=== PATIENT | female | born 1965 | race Hispanic/Latino ===

== ENCOUNTER 2023-05-22 16:30 | Emergency (ER) | payer OTHER ==
--- OUTSIDE RECORDS SUMMARY | 2023-05-22 16:36 | XMS REPORT | Continuity of Care Document ---
:1965 Author Organization [facility] t Address [address] [place] [address] [place] [id number] Care Team Providers Name Role Phone Pcp, Patient Does Not Have A Primary Care Physician [phone] SHADI BAILEY Attending Clinician Unavailable [email or web address] Attending Clinician Unavailable Cecil Vitale Attending Clinician Dianne Norris Attending Clinician Kaity Tucker Attending Clinician Unavailable DILAN RUVALCABA Attending Clinician Unavailable Tobin Dilan Attending Clinician KATHY FORD Attending Clinician Unavailable Kathy Ford DO Attending Clinician Doctor Unassigned, Steely [place] Attending Clinician Unavailable Andreas Kent DO Attending Clinician SABAS PEREZ Attending Clinician Unavailable Sabas Perez MD Attending Clinician Jacqueline HAY, Isabel Baez Attending Clinician Unavailable Héctor Pugh Attending Clinician Andreas Linares MD Attending Clinician [phone] Moses Turner MD Attending Clinician CARLOZ GOMEZ Attending Clinician Unavailable PETER SANZ Attending Clinician Unavailable [email or web address] Admitting Clinician Unavailable DILAN RUVALCABA Admitting Clinician Unavailable Dilan Ruvalcaba Admitting Clinician KATHY FORD Admitting Clinician Unavailable Andreas Linares MD Admitting Clinician [phone] Payers Payer Name Policy Type Policy Number Effective Date Expiration Date S luis [facility] CHOICE/CHOICE [id number] 2021 PLUS 00:00:00 [employer] GENERIC [id number] 2018 00:00:00 [facility] [id number] 2021 PPO 00:00:00 Problems Condition Condition Condition Status Onset Resolution Last Treating Co mments Source Name Details Category Date Date Treatment Clinician Date UNK UNK Diagnosis Active 2021-08-25 Mem oria Active 08-24 11:36:00 l 08/24/2021 00:00: Calvin gandhi [place] [id number] [place] LAPAROSCOP LAPAROSCO Diagnosis Active 2021-08-29 Memoria IC PIC 08-24 16:37:00 l CHOLECYSTE CHOLECYSTE 00:00: [place] CTOMY CTOMY 00 Active 08/24/2021 [facility] [place] [facility] Fluid Fluid Disease Active Univers collection collection 7-05 it y of at at 00:00: [place] surgical surgical 00 Medica l site site Branch Menorrhagi Menorrhagi Disease Active Overview : Univers a with a with 8-31 Added ity of regular regular 00:00: automatic [place] cycle cycle 00 ally from Medical request Branch for surgery [id number] Menorrhagi Menorrhagi Disease Active Overview : Univers a with a with 8-31 Formattin ity of regular regular 00:00: g of this [place] cycle cycle 00 note Medical might be Branch different from the original. Added automatic ally from request for surgery [id number] Anemia Anemia Disease Active Univers 8-14 ity of 00:00: [place] 00 Medical Branch Vaginal Vaginal Disease Active Univers bleeding bleeding 8-14 ity of 00:00: [place] 00 Medical Branch Iron Iron Disease Active Univers deficiency deficiency 8-14 it y of anemia due [place] to chronic to chronic 00 Me dical blood loss blood loss Br anch Anemia, Anemia, Disease Active Univers unspecifie unspecifie 01-24 it y of d type d type 00:00: [place] 00 Medical Branch Body mass Body mass Problem Resolve 2022-01-22 Memoria index 30+ index 30+ d 22:22:00 l - obesity - obesity [place] (finding) (finding) Resolved Problem 01/22/2022 BMI=35 Medical Group, DaM H [facility]IE [facility] Smoker Smoker Problem Active 2021-10-21 Skip almita (finding) (finding) 22:44:14 l Active [place] Problem 10/21/2021 Medical Group, DaRadha H [facility] [place] Fatigue Fatigue Problem Active 2022-01-22 M emoria (finding) (finding) 22:22:00 l Active [place] Problem 01/22/2022 [facility] History of History Problem Active 2022-01-22 Memoria total of total 22:22:00 l hysterecto hysterecto [place] my my (situation (situation ) ) Active Problem 01/22/2022 Medical Group Immunizati Immunizat Problem Active 2022-01-22 Memoria on due ion due 22:22:00 l (finding) (finding) [place] Active Problem 01/22/2022 Medical Group Menopausal Menopausa Problem Active 2022-01-22 Memoria and l and 22:22:00 l postmenopa postmenopa [place] [facility] usal usal disorders disorders (disorder) (disorder) Active Problem 01/22/2022 Medical Group Patient Patient Problem Active 2022-01-22 Me moria encounter encounter 22:22:00 l status status Moustapha (finding) (finding) Active Problem 01/22/2022 Medical Group Systolic Systolic Problem Active 2022-01-22 Memoria murmur murmur 22:22:00 l (finding) (finding) [place] Active Problem 01/22/2022 Medical Group R10.11 - R10.11 - Diagnosis Active 2021-08-24 Memoria RIGHT RIGHT 16:36:00 l UPPER UPPER [place] QUADRANT QUADRANT PAIN K80.2 PAIN K80.2 Active ROMIE Roberson History of Past Illness Condition Condition Condition Status Onset Resolution Last Treating Co mments Source Name Details Category Date Date Treatment Clinician Date Cardiac Cardiac Problem 2021-11-20 2021-11-20 Memoria murmur, murmur, 11-17 02:24:19 02:24:19 l unspecifie unspecifie 20:11: [place] d d 00 11/17/2021 11/20/2021 Medical Group Other Other Problem 2021-11-20 2021-11-20 M emoria fatigue fatigue 11-17 02:24:19 02:24:19 l 11/17/2021 20:11: Calvin n 11/20/2021 00 Medical Group Encounter Encounter Problem 2021-11-20 2021-11-20 Memoria for for 11-17 02:24:19 02:24:19 l screening screening 20:10: [place] for for 00 malignant malignant neoplasm neoplasm of colon of colon 11/17/2021 11/20/2021 Medical Group Encounter Encounter Problem 2021-11-20 2021-11-20 Memoria for for 11-17 02:24:19 02:24:19 l immunizati immunizati 20:10: [place] on on 00 11/17/2021 11/20/2021 Medical Group Other 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 11-17 02:24:19 02:24:19 l (current) (current) 20:10: [place] drug drug 00 therapy therapy 11/17/2021 11/20/2021 Medical Group Acquired Acquired Problem 2021-11-20 2021-11-20 Memoria absence of absence of - 02:24:19 02:24:19 l both both 20:10: [place] cervix and cervix and 00 uterus uterus 11/17/2021 11/20/2021 Medical Group Encounter Encounter Problem 2021-11-20 2021-11-20 Memoria for for - 02:24:19 02:24:19 l general general 20:09: Moustapha adult adult 00 medical medical examinatio examinatio n without n without abnormal abnormal findings findings 11/17/2021 11/20/2021 Medical Group Unspecifie Unspecifi Problem 2021-11-20 2021-11-20 Memoria d ed 11-17 02:24:19 02:24:19 l menopausal menopausal 20:09: [place] and and 00 perimenopa perimenopa usal usal disorder disorder 11/17/2021 11/20/2021 Medical Group Cholecysti Cholecyst Problem 2021-08-29 2021-08-29 Memoria tis, itis, 3 22:41:10 22:41:10 l unspecifie unspecifie 18:36: [place] d d 00 08/26/2021 08/29/2021 [facility] Allergies, Adverse Reactions, Alerts Allergy Allergy Status Severity Reaction(s) Onset Inactive Treating Comm ents Source Name Type Date Date Clinician NO KNOWN Drug Active Univers ALLERGIE Class ity of S [facility] No Known No Known Active Memori a Medicati Medicati l on on Moustapha Allergie Allergie s s Social History Social Habit Start Date Stop Date Quantity Comments Source [facility] 2021-08-24 2021-08-24 [facility] ermann 20:14:39 20:14:39 Exposure to 2021-07-03 2021-08-02 Not sure [facility] SARS-CoV-2 (event) 00:00:00 09:15:00 [facility] Alcohol intake 2020-01-27 2020-01-27 .29 /d University of 00:00:00 00:00:00 [facility] Tobacco use and 2020-01-26 2020-01-26 Smokeless Universit y of exposure 00:00:00 00:00:00 tobacco non-user [facility] Cigarettes smoked 2020-01-26 2020-01-26 Univers ity of current (pack per 00:00:00 00:00:00 ) - Reported Branch History of Social 2019-12-29 2019-12-29 Univers ity of function 00:00:00 00:00:00 [facility] History of tobacco 1980-12-14 2017-02-06 Cigarette Smoker University of use 00:00:00 00:00:00 [facility] Tobacco Comment 2017-02-05 2017-02-05 pt aware of Universi ty of 00:00:00 00:00:00 smoking haRMS [facility] Sex Assigned At [birth year] Universit y of 00:00:00 00:00:00 [facility] Smoking Status Start Date Stop Date Source Occasional tobacco smoker 2020-01-26 00:00:00 Un iversity of [facility] Medications Ordered Filled Start Stop Current Ordering Indication Dosage Frequency Signature Comments Components Source Medication Medication Date Date Medication? Clinician (SIG) Name Name estradiol 2 Yes 2 mg = 1 Me moria mg oral 5-26 tab, PO, l tablet 20:08: Daily, # [place] 00 30 tab, 0 Refill(s), Pharmacy: [id number], 168.91, cm, 11/17/21 14:41:00 CDT, Height, 98.324, kg, 11/17/21 14:41:00 CDT, Weight Docusate No Notes: Memoria 3-05 (Same as: l 15:00: Colace) Moustapha 00 (Do Not Crush) D10W No 125 mL, Memoria (bolus) IV 3-05 999 ml/hr, l 01:56: Route: [place] 00 IVPB, Drug Form: INJ, Dosing Weight 100, kg, PRN, PRN Blood Glucose Results, Start date: 08/26/21 19:56:00 DESULFURIZER HAND, Duration: 30 day, Stop date: 09/25/21 20:55:00 CDT, Infuse over: 0.1 hr, 0 tramadol No Notes: Not Mem oria hydrochlori 3-05 to exceed l de 50 MG 00:22: 400mg/day. [place] Oral Tablet 00 (Same As: Ultram) Acetaminoph No Notes: Do M emoria en 325 MG / 3-05 not exceed l Hydrocodone 00:22: 4gm/day of [place] Bitartrate 00 acetaminop 10 MG Oral hen. (Same Tablet as: [place]aus[place] [[place]aus[place] 325/10) 10/325] Dextrose No 25 mL, Memoria 50% Syringe 3-05 Route: l (D50W) 00:21: IVP, Moustap[place] 00 Dosing Weight 100, kg, PRN, PRN Blood Glucose Results, Start date: 08/26/21 18:21:00 DESULFURIZER HAND, Duration: 30 day, Stop date: 09/25/21 19:20:00 CDT Glucagon No 1 mg, Memoria 3-05 Route: IM, l 00:21: Drug form: Moustapha 00 PDR/INJ, PRN, Dosing Weight 100, kg, PRN Blood Glucose Results, Start date: 08/26/21 18:21:00 DESULFURIZER HAND, Duration: 30 day, Stop date: 09/25/21 19:20:00 CDT, 0 Ondansetron No Notes: Skip almita 3-05 (Same as: l 00:21: Zofran) Moustapha MEDICATION WASTE Product Size: 4 mg Product Wasted: ___ mg Acetaminoph No Notes: Do M emoria en 3-05 not exceed l 00:21: 4 gm/day. [place] 00 (Same as: Tylenol) gabapentin No Notes: Memor ia 300 MG Oral 3-04 (Same as: l Capsule 22:00: Neurontin) [place] Hydralazine No Notes: Skip almita 3-04 (Same as: l 21:12: Apresoline Moustapha ) Push over 5 minutes Labetalol No Notes: Memori a 3-04 (Same as: l 21:12: Normodyne, [place] Trandate) Push over 2 minutes Give bolus over 2-3 minutes. Oxycodone No Notes: Memori a Hydrochlori 3-04 (Same as: l de 5 MG 21:12: Roxicodone [place] Oral Tablet ) Fentanyl No Notes: Memoria 3-04 (Same as: l 21:12: Sublimaze) M[place] Preservati ve free. Hydromorpho No Notes: Skip almita ne 3-04 Same as: l 21:12: Dilaudid [place] Flumazenil No Notes: Memor ia 3-04 (Same as: l 21:12: Romazicon) M[place]ha Naloxone No Notes: Memoria 3-04 Same as l 21:12: Narcan [place] 00 Albuterol No Notes: SEE Me moria 0.83 MG/ML 3-04 RT l Inhalant 21:12: DOCUMENTAT [place] Solution 00 ION (Same as: Proventil) Diphenhydra No Notes: Skip almita mine 3-04 (Same as: l 21:12: Benadryl) Ondansetron No Notes: Skip almita 3-04 (Same as: l 21:12: Zofran) MEDICATION WASTE Product Size: 4 mg Product Wasted: ___ mg Dexamethaso No Notes: Memoria ne 3-04 MEDICATION l 21:12: WASTE Product Size: 10 mg Product Wasted: ___ mg gabapentin Yes 300 mg = 1 M emoria 300 MG Oral 3-04 cap, PO, l Capsule 21:05: Q8H, # 42 Lizbet nn 00 cap, 0 Refill(s), Pharmacy: [facility] [id number], 167.64, cm, 08/24/21 14:12:00 DESULFURIZER HAND, Height, 100, kg, 08/25/21 11:49:00 DESULFURIZER HAND, Weight Methocarbam Yes 1,000 mg = Memoria ol 500 MG 3-04 2 tab, PO, l Oral Tablet 21:05: QID, X 7 He [place] [Robaxin] 00 day, # 56 tab, 0 Refill(s), Pharmacy: [facility] [id number], 167.64, cm, 08/24/21 14:12:00 DESULFURIZER HAND, Height, 100, kg, 08/25/21 11:49:00 DESULFURIZER HAND, Weight glycopyrrol No Route: IV, Memoria ate (ANES) 08-26 Drug form: l 20:59: INJ, ONCE, Stop date: 08/26/21 14:59:00 DESULFURIZER HAND neostigmine No Route: IV, Memoria (ANES) 3- Drug form: l 20:59: INJ, ONCE, Stop date: 08/26/21 14:59:00 DESULFURIZER HAND esmolol No Route: IV, Skip almita (ANES) 08-26 Drug form: l 19:42: INJ, ONCE, Stop date: 08/26/21 13:42:00 DESULFURIZER HAND ondansetron No Route: IV, Memoria (ANES) 3- Drug form: l 19:06: INJ, ONCE, Stop date: 08/26/21 13:06:00 DESULFURIZER HAND dexamethaso No Route: IV, Memoria ne (ANES) 08-26 Drug form: l 19:06: INJ, ONCE, Stop date: 08/26/21 13:06:00 DESULFURIZER HAND ePHEDrine No Route: IV, Me moria (ANES) 08-26 Drug form: l 19:06: INJ, ONCE, Stop date: 08/26/21 13:06:00 DESULFURIZER HAND phenylephri No Route: IV, Memoria ne (ANES) 08-26 Drug form: l 19:06: INJ, ONCE, Stop date: 08/26/21 13:06:00 DESULFURIZER HAND lidocaine 2021-0 No Route: IV, Me moria (ANES) 3 Drug form: l 19:01: INJ, ONCE, Stop date: 08/26/21 13:01:00 DESULFURIZER HAND fentaNYL 2021-0 No Route: IV, Mem oria (ANES) 08-26 Drug form: l 19:01: INJ, ONCE, Stop date: 08/26/21 13:01:00 DESULFURIZER HAND propofol 2021-0 No Route: IV, Mem oria (ANES) 08-26 Drug form: l 19:01: INJ, ONCE, Stop date: 08/26/21 13:01:00 DESULFURIZER HAND rocuronium 0 No Route: IV, M emoria (ANES) - Drug form: l 19:01: INJ, ONCE, Stop date: 08/26/21 13:01:00 DESULFURIZER HAND ceFAZolin 2021-0 No Route: IV, Me moria (ANES) 3- Drug form: l 19:01: INJ, ONCE, Stop date: 08/26/21 13:01:00 DESULFURIZER HAND midazolam 2021-0 No Route: IV, Me moria (ANES) 3-04 Drug form: l 18:56: SOLN, [place] 00 ONCE, Stop date: 08/26/21 12:56:00 DESULFURIZER HAND Lactated No Route: IV, Mem oria Ringers 08-26 Total l Injection 18:05: Volume: Lizbet nn IV (ANES) 00 1,000, 1000 mL Start date: 08/26/21 12:05:00 DESULFURIZER HAND, Stop date: 08/26/21 13:05:00 DESULFURIZER HAND Calcium No 1,000 mL, Memor ia Chloride 08-26 Rate: 75 l 0.0014 17:33: ml/hr, Moustapha MEQ/ML / 00 Infuse Potassium over: 13.3 Chloride hr, Route: 0.004 IV, Dosing MEQ/ML / Weight 100 Sodium kg, Total Chloride Volume: 0.103 1,000, MEQ/ML / Start Sodium date: Lactate 08/26/21 0.028 11:33:00 MEQ/ML DESULFURIZER HAND, Injectable Duration: Solution 30 day, Stop date: 09/25/21 11:32:00 CDT, BSA: 2.19 m2, 0 estradiol 2 Yes 2 mg = 1 Me moria mg oral 2-25 tab, PO, l tablet 22:32: Daily, # [place] 00 90 tab, 0 Refill(s), Pharmacy: [facility] [id number], 168.91, cm, 08/19/21 16:04:00 DESULFURIZER HAND, Height, 99.148, kg, 08/19/21 16:04:00 DESULFURIZER HAND, Weight estradiol 2 No 2 mg = 1 Me moria mg oral 2-25 tab, PO, l tablet 22:02: Daily, 0 [place] 00 Refill(s) traMADoL 2021- No 50mg 50 mg, Univer s (ULTRAM) 08-02-08 Oral, ity of tablet 50 21:15: 19:50 ONCE, 1 [place] mg 00 :00 dose, On Sun08/02/21 Branch at 1515, Routine iopamidol 2021- No [id number] 100mL 100 mL, Univers (ISOVUE 08-02- Intravenou ity o f 300-500 mL) 18:45: 17:27 s, ONCE, 1 [place] injection 00 :00 dose, On Medica l 100 mL 08/02/21 Branch at 1245, Routine proMETHazin 0 Yes [id number] 25mg Take 1 Univers e 25 mg 2-08 tablet by ity of tablet 00:00: mouth [place] 00 every 6 Medical (six) Branch hours as needed for Nausea and Vomiting (N/V). traMADoL 50 2021-0 2021- No [id number] 50mg Take 1 Uni vers mg tablet 2-08 02-16 tablet by ity of 00:00: 05:59 mouth [place] 00 :00 every 6 Medical (six) Branch hours as needed for Pain (scale 7-10) for up to 7 days. Indication s: acute pain Non-Adheren 0 Yes [id number] Use as Univers t Bandage 7-06 directed ity of (CURITY 00:00: [place] ABDOMINAL 00 Medical PAD) 5 X 9 Branch " Bndg Gauze 2020-0 Yes [id number] Use as Unive rs Bandage 7-06 directed ity of (KERLIX) 4 00:00: [place] 1/2 X 147 " 00 Medical Bndg Branch Povidone-Io 2020-0 Yes [id number] Apply to Univers dine 10 % 7-06 area(s) ity of swab stick 00:00: daily. 00 Medical Branch Non-Adheren 2019-0 Yes [id number] Use as Univers t Bandage 7-06 directed ity of (CURITY 00:00: [place] ABDOMINAL 00 Medical PAD) 5 X 9 Branch " Bndg Gauze 2020-0 Yes [id number] Use as Unive rs Bandage 7-06 directed ity of (KERLIX) 4 00:00: [place] 1/2 X 147 " 00 Medical Bndg Branch Povidone-Io 2020-0 Yes [id number] Apply to Univers dine 10 % 7-06 area(s) ity of swab stick 00:00: daily. [place] 00 Medical Branch Non-Adheren 2019-0 Yes [id number] Use as Univers t Bandage 7-06 directed ity of (CURITY 00:00: [place] ABDOMINAL 00 Medical PAD) 5 X 9 Branch " Bndg Gauze 2020-0 Yes [id number] Use as Unive rs Bandage 7-06 directed ity of (KERLIX) 4 00:00: [place] 1/2 X 147 " 00 Medical Bndg Branch Povidone-Io 2020-0 Yes [id number] Apply to Univers dine 10 % 7-06 area(s) ity of swab stick 00:00: daily. 00 Medical Branch Non-Adheren 2020-0 Yes [id number] Use as Univers t Bandage 7-06 directed ity of (CURITY 00:00: [place] ABDOMINAL 00 Medical PAD) 5 X 9 Branch " Bndg Gauze 2020-0 Yes [id number] Use as Unive rs Bandage 7-06 directed ity of (KERLIX) 4 00:00: [place] 1/2 X 147 " 00 Medical Bndg Branch Povidone-Io 2020-0 Yes [id number] Apply to Univers dine 10 % 7-06 area(s) ity of swab stick 00:00: daily. [place] Medical Branch Non-Adheren 2020-0 Yes [id number] Use as Univers t Bandage 7-06 directed ity of (CURITY 00:00: [place] ABDOMINAL 00 Medical PAD) 5 X 9 Branch " Bndg Gauze 2020-0 Yes [id number] Use as Unive rs Bandage 7-06 directed ity of (KERLIX) 4 00:00: [place] 1/2 X 147 " 00 Medical Bndg Branch Povidone-Io 2020-0 Yes [id number] Apply to Univers dine 10 % 7-06 area(s) ity of swab stick 00:00: daily. 00 Medical Branch Non-Adheren 2020-0 Yes [id number] Use as Univers t Bandage 7-06 directed ity of (CURITY 00:00: [place] ABDOMINAL 00 Medical PAD) 5 X 9 Branch " Bndg Gauze 2020-0 Yes [id number] Use as Unive rs Bandage 7-06 directed ity of (KERLIX) 4 00:00: [place] 1/2 X 147 " 00 Medical Bndg Branch Povidone-Io 2020-0 Yes [id number] Apply to Univers dine 10 % 7-06 area(s) ity of swab stick 00:00: daily. 00 Medical Branch Non-Adheren 2020-0 Yes [id number] Use as Univers t Bandage 7-06 directed ity of (CURITY 00:00: [place] ABDOMINAL 00 Medical PAD) 5 X 9 Branch " Bndg Gauze 2020-0 Yes [id number] Use as Unive rs Bandage 7-06 directed ity of (KERLIX) 4 00:00: [place] 1/2 X 147 " 00 Medical Bndg Branch Povidone-Io 2020-0 Yes [id number] Apply to Univers dine 10 % 7-06 area(s) ity of swab stick 00:00: daily. [place] 00 Medical Branch Non-Adheren 2020-0 Yes [id number] Use as Univers t Bandage 7-06 directed ity of (CURITY 00:00: [place] ABDOMINAL 00 Medical PAD) 5 X 9 Branch " Bndg Gauze 2020-0 Yes [id number] Use as Unive rs Bandage 7-06 directed ity of (KERLIX) 4 00:00: [place] /2 X 147 " 00 Medical Bndg Branch Povidone-Io 2020-0 Yes [id number] Apply to Univers dine 10 % 7-06 area(s) ity of swab stick 00:00: daily. [place] 00 Medical Branch Non-Adheren 2020-0 Yes [id number] Use as Univers t Bandage 7-06 directed ity of (CURITY 00:00: [place] ABDOMINAL 00 Medical PAD) 5 X 9 Branch " Bndg Gauze 2020-0 Yes [id number] Use as Unive rs Bandage 7-06 directed ity of (KERLIX) 4 00:00: [place] 06/26 X 147 " 00 Medical Bndg Branch Povidone-Io 2020-0 Yes [id number] Apply to Univers dine 10 % 7-06 area(s) ity of swab stick 00:00: daily. [place] 00 Medical Branch Non-Adheren 2020-0 Yes [id number] Use as Univers t Bandage 7-06 directed ity of (CURITY 00:00: [place] ABDOMINAL 00 Medical PAD) 5 X 9 Branch " Bndg Gauze 2020-0 Yes [id number] Use as Unive rs Bandage 7-06 directed ity of (KERLIX) 4 00:00: [place] /2 X 147 " 00 Medical Bndg Branch Povidone-Io 2020-0 Yes [id number] Apply to Univers dine 10 % 7-06 area(s) ity of swab stick 00:00: daily. [place] 00 Medical Branch Non-Adheren 2020-0 Yes [id number] Use as Univers t Bandage 7-06 directed ity of (CURITY 00:00: [place] ABDOMINAL 00 Medical PAD) 5 X 9 Branch " Bndg Gauze 2020-0 Yes [id number] Use as Unive rs Bandage 7-06 directed ity of (KERLIX) 4 00:00: [place] 1/2 X 147 " 00 Medical Bndg Branch Povidone-Io 2020-0 Yes [id number] Apply to Univers dine 10 % 7-06 area(s) ity of swab stick 00:00: daily. [place] 00 Medical Branch Non-Adheren 2020-0 Yes [id number] Use as Univers t Bandage 7-06 directed ity of (CURITY 00:00: [place] ABDOMINAL 00 Medical PAD) 5 X 9 Branch " Bndg Gauze 2020-0 Yes [id number] Use as Unive rs Bandage 7-06 directed ity of (KERLIX) 4 00:00: [place] /2 X 147 " 00 Medical Bndg Branch Povidone-Io 2020-0 Yes [id number] Apply to Univers dine 10 % 7-06 area(s) ity of swab stick 00:00: daily. [place] 00 Medical Branch Non-Adheren 2020-0 Yes [id number] Use as Univers t Bandage 7-06 directed ity of (CURITY 00:00: [place] ABDOMINAL 00 Medical PAD) 5 X 9 Branch " Bndg Gauze 2020-0 Yes [id number] Use as Unive rs Bandage 7-06 directed ity of (KERLIX) 4 00:00: [place] /2 X 147 " 00 Medical Bndg Branch Povidone-Io 2020-0 Yes [id number] Apply to Univers dine 10 % 7-06 area(s) ity of swab stick 00:00: daily. [place] 00 Medical Branch Non-Adheren 2020-0 Yes [id number] Use as Univers t Bandage 7-06 directed ity of (CURITY 00:00: [place] ABDOMINAL 00 Medical PAD) 5 X 9 Branch " Bndg Gauze 2020-0 Yes [id number] Use as Unive rs Bandage 7-06 directed ity of (KERLIX) 4 00:00: [place] /2 X 147 " 00 Medical Bndg Branch Povidone-Io 2020-0 Yes [id number] Apply to Univers dine 10 % 12-28 area(s) ity of swab stick 00:00: daily. [place] Medical Branch Non-Adheren 2020-0 Yes [id number] Use as Univers t Bandage 12-28 directed ity of (CURITY 00:00: [place] ABDOMINAL 00 Medical PAD) 5 X 9 Branch " Bndg Gauze 2020-0 Yes [id number] Use as Unive rs Bandage 12-28 directed ity of (KERLIX) 4 00:00: [place] 1/2 X 147 " 00 Medical Bndg Branch Povidone-Io 2020-0 Yes [id number] Apply to Univers dine 10 % 12-28 area(s) ity of swab stick 00:00: daily. [place] Medical Branch Sodium 2020-0 2020- No [id number] Apply to U nivers Chloride, 12-28 area(s) ity of External, 00:00: 04:59 daily [place] (SALINE 00 :00 56 days. Medical WOUND WASH) Branch 0.9 % SprA Sodium 2020-0 2020- No [id number] Apply to U nivers Chloride, 12-28 area(s) ity of External, 00:00: 04:59 daily for [place] (SALINE 00 :00 56 days. Medical WOUND WASH) Branch 0.9 % SprA Sodium 2020-0 2020- No [id number] Apply to U nivers Chloride, 12-28 area(s) ity of External, 00:00: 04:59 daily for [place] (SALINE 00 :00 56 days. Medical WOUND WASH) Branch 0.9 % SprA Sodium 2020-0 2020- No [id number] Apply to U nivers Chloride, 12-28 area(s) ity of External, 00:00: 04:59 daily for [place] (SALINE 00 :00 56 days. Medical WOUND WASH) Branch 0.9 % SprA Sodium 2020-0 2020- No [id number] Apply to U nivers Chloride, 12-28 area(s) ity of External, 00:00: 04:59 daily for [place] (SALINE 00 :00 56 days. Medical WOUND WASH) Branch 0.9 % SprA Sodium 2020-0 2020- No [id number] Apply to U nivers Chloride, 12-28 area(s) ity of External, 00:00: 04:59 daily [place] (SALINE 00 :00 56 days. Medical WOUND WASH) Branch 0.9 % SprA Sodium 2020-0 2020- No [id number] Apply to U nivers Chloride, 12-28 area(s) ity of External, 00:00: 04:59 daily [place] (SALINE 00 :00 56 days. Medical WOUND WASH) Branch 0.9 % SprA Sodium 2020-0 2020- No [id number] Apply to U nivers Chloride, 12-28 area(s) ity of External, 00:00: 04:59 daily [place] (SALINE 00 :00 56 days. Medical WOUND WASH) Branch 0.9 % SprA Sodium 2020-0 2020- No [id number] Apply to U nivers Chloride, 12-28 area(s) ity of External, 00:00: 04:59 daily [place] (SALINE 00 :00 56 days. Medical WOUND WASH) Branch 0.9 % SprA Sodium 2020-0 2020- No [id number] Apply to U nivers Chloride, 12-28 area(s) ity of External, 00:00: 04:59 daily [place] (SALINE 00 :00 56 days. Medical WOUND WASH) Branch 0.9 % SprA Sodium 2020-0 2020- No [id number] Apply to U nivers Chloride, 12-28 area(s) ity of External, 00:00: 04:59 daily [place] (SALINE 00 :00 56 days. Medical WOUND WASH) Branch 0.9 % SprA Sodium 2020-0 2020- No [id number] Apply to U nivers Chloride, 12-28 area(s) ity of External, 00:00: 04:59 [place] (SALINE 00 :00 56 days. Medical WOUND WASH) Branch 0.9 % SprA Gauze 2020-0 2020- No [id number] Use as Univ ers Bandage 12-28 directed ity of (KERLIX) 4 00:00: 00:00 [place] 1/2 X 147 " 00 :00 Medical Bndg Branch Povidone-Io 2020-0 2020- No [id number] Apply to Univers dine 10 % 12-28 area(s) ity of swab stick 00:00: 00:00 daily. [place] 00 :00 Medical Branch Non-Adheren 2020-0 2020- No [id number] Use as Univers t Bandage 12-28 directed ity o f (CURITY 00:00: 00:00 [place] ABDOMINAL 00 :00 Medical PAD) 5 X 9 Branch " Bndg Sodium 2020-0 2020- No [id number] Apply to U nivers Chloride, 12-28 area(s) ity of External, 00:00: 00:00 daily. [place] (WOUND WASH 00 :00 Medical SALINE) 0.9 Branch % SprA Gauze 2020-0 2020- No [id number] Use as Univ ers Bandage 12-28 directed ity of (KERLIX) 4 00:00: 00:00 [place] 1/2 X 147 " 00 :00 Medical Bndg Branch Povidone-Io 2020-0 2020- No [id number] Apply to Univers dine 10 % 12-28 area(s) ity of swab stick 00:00: 00:00 daily. [place] 00 :00 Medical Branch Non-Adheren 2020-0 2020- No [id number] Use as Univers t Bandage 12-28 directed ity o f (CURITY 00:00: 00:00 [place] ABDOMINAL 00 :00 Medical PAD) 5 X 9 Branch " Bndg Sodium 2020-0 2020- No [id number] Apply to U nivers Chloride, 12-28 area(s) ity of External, 00:00: 00:00 daily. [place] (WOUND WASH 00 :00 Medical SALINE) 0.9 Branch % SprA Gauze 2020-0 2020- No [id number] Use as Univ ers Bandage 12-28 directed ity of (KERLIX) 4 00:00: 00:00 [place] 1/2 X 147 " 00 :00 Medical Bndg Branch Povidone-Io 2020-0 2020- No [id number] Apply to Univers dine 10 % 12-28 area(s) ity of swab stick 00:00: 00:00 daily. [place] 00 :00 Medical Branch Non-Adheren 2019-0 2020- No [id number] Use as Univers t Bandage 12-28 directed ity o f (CURITY 00:00: 00:00 [place] ABDOMINAL 00 :00 Medical PAD) 5 X 9 Branch " Bndg Sodium 2019- 2020- No [id number] Apply to U nivers Chloride, 12-28 area(s) ity of External, 00:00: 00:00 daily. [place] (WOUND WASH 00 :00 Medical SALINE) 0.9 Branch % SprA diazePAM 2019- No 5mg 5 mg, Slow [facility] (VALIUM) 12-27 IV Push, ity of injection 5 16:45: 15:50 ONCE, 1 [place] mg 00 :00 dose, [facility] 12/28/19 at Branch 1145, STAT lidocaine-e 2019- No 30mL 30 mL, Uni vers pinephrine 12-27 Intraderma it y of (XYLOCAINE 16:45: 16:45 l, ONCE, 1 [place] W/EPINEPHRI 00 :00 dose, Replaced By [facility] ical NE) 2 12/28/19 at [place] %-1:200,000 1145, injection Routine 30 mL docusate Yes 100mg 100 mg, Unive rs (COLACE) 12-27 Oral, ity of capsule 100 14:00: DAILY, [place] mg 00 First dose Medical on Replaced By [facility] 12/28/19 at 0900, Until Discontinu ed, Routine vancomycin 2019- No 1000mg 1,000 mg, Univers (VANCOCIN) 12-27 IV ity of 1,000 mg in 07:00: 16:00 [place], [place] NaCl 0.9% 00 :46 Q12H ABX, Medic al (NS) 250 mL First dose Br anch VIAL-MATE on [place] IV 12/28/19 at piggyback 0200, Until Discontinu ed, 250 mL
R lorri for Anti-Infec tive: Empiric Therapy for Suspected Infection< br>Empiric Therapy Site: Skin / Soft tissue
Duration of therapy: 7 days D5W 0.45% 2019-0 Yes IV Univers NaCl 12-27 Infusion, ity of (1/2NS) 1 L 06:00: at 75 [place] + KCL 20 00 mL/hr, Medical mEq CONTINUOUS Branch , Starting 12/28/19 at 0100, Until Discontinu ed, Routine HYDROcodone 2020-0 Yes 1{tbl} 1 tablet, Univers -acetaminop 12-27 Oral, ity of hen (NORCO 05:48: Q6HPRN, [place] 5) 5-325 mg 55 Starting Medi norman tablet 1 12/28/19 Branc h tablet at 0048, Until Discontinu ed, Routine, Pain (scale 7-10) acetaminoph 2020-0 Yes 650mg 650 mg, [facility] en 7-05 Oral, ity of (TYLENOL) 05:48: Q6HPRN, [place] tablet 650 49 Starting Medic al mg 12/28/19 Branch at 0048, Until Discontinu ed, Routine, Pain (scale 1-3), Pain (scale 4-6) ondansetron 2019-0 Yes 4mg 4 mg, Slow Univers (ZOFRAN 12-27 IV Push, ity of (PF)) 05:48: Administer [place] injection 4 46 over 15 Medic al mg Minutes, Branch Q8HPRN, Starting 12/28/19 at 0048, Until Discontinu ed, Routine, Nausea and Vomiting (N/V) iohexol 2019-0 2020- No 120mL 120 mL, Unive rs (OMNIPAQUE 12-27-05 Intravenou it y of 350 01:15: 01:06 s, ONCE, 1 [place] BULK-150 00 :00 dose, Sat Medica l mL) 12/27/19 at Branch injection 2015, 120 mL Routine NaCl 0.9% 0 2020- No 1000mL at 999 Uni vers (NS) IV 12-27-05 mL/hr, ity of infusion 00:45: 01:45 [place] 1,000 mL 00 :00 s, ONCE, 1 Medic al dose, Sat Branch 12/27/19 at 1945, Routine sulfamethox 2019-0 2020- No [id number] 1{tbl} Take 1 Univers azole-trime 12-2713 tablet by it y of thoprim 00:00: 04:59 mouth 2 [place] (BACTRIM 00 :00 (two) Medical DS) 800-160 times Branch mg per daily for tablet 7 days. sulfamethox 2020-0 2020- No [id number] 1{tbl} Take 1 Univers azole-trime 7-05 07-13 tablet by it y of thoprim 00:00: 04:59 mouth 2 [place] (BACTRIM 00 :00 (two) Medical DS) 800-160 times Branch mg per daily for tablet 7 days. sulfamethox 2020-0 2020- No [id number] 1{tbl} Take 1 Univers azole-trime 7-05 07-13 tablet by it y of thoprim 00:00: 04:59 mouth 2 [place] (BACTRIM 00 :00 (two) Medical DS) 800-160 times Branch mg per daily for tablet 7 days. sulfamethox 2020-0 2020- No [id number] 1{tbl} Take 1 Univers azole-trime 7-05 07-13 tablet by it y of thoprim 00:00: 04:59 mouth 2 [place] (BACTRIM 00 :00 (two) Medical DS) 800-160 times Branch mg per daily for tablet 7 days. sulfamethox 2020-0 2020- No [id number] 1{tbl} Take 1 Univers azole-trime 7-05 07-13 tablet by it y of thoprim 00:00: 04:59 mouth 2 [place] (BACTRIM 00 :00 (two) Medical DS) 800-160 times Branch mg per daily for tablet 7 days. acetaminoph 2020-0 2020- No [id number] 650mg Take 2 Univers en 325 mg 7- 07-11 tablets by ity of tablet 00:00: 04:59 mouth [place] 00 :00 every 6 Medical (six) Branch hours as needed for Pain (scale 1-3) or Pain (scale 4-6) for up to 5 days. acetaminoph 2020-0 2020- No [id number] 650mg Take 2 Univers en 325 mg 7-05 07-11 tablets by ity of tablet 00:00: 04:59 mouth [place] 00 :00 every 6 Medical (six) Branch hours as needed for Pain (scale 1-3) or Pain (scale 4-6) for up to 5 days. acetaminoph 2020-0 2020- No [id number] 650mg Take 2 Univers en 325 mg 7-05 07-11 tablets by ity of tablet 00:00: 04:59 mouth [place] 00 :00 every 6 Medical (six) Branch hours as needed for Pain (scale 1-3) or Pain (scale 4-6) for up to 5 days. acetaminoph 2020-0 2019- No [id number] 650mg Take 2 Univers en 325 mg 7- 07-11 tablets by ity of tablet 00:00: 04:59 mouth [place] 00 :00 every 6 Medical (six) Branch hours as needed for Pain (scale 1-3) or Pain (scale 4-6) for up to 5 days. acetaminoph 2020-0 2019- No [id number] 650mg Take 2 Univers en 325 mg 7- 07-11 tablets by ity of tablet 00:00: 04:59 mouth [place] 00 :00 every 6 Medical (six) Branch hours as needed for Pain (scale 1-3) or Pain (scale 4-6) for up to 5 days. bromphenira 2019-0 Yes [id number] 10mL Take 10 mL Univers mine-pseudo 7-09 by mouth 3 it y of ephedrine-D 00:00: (three) [place] M (BROMFED 00 times Medical DM) 2-30-10 daily. Branch mg/5 mL syrup bromphenira 2019-0 Yes [id number] 10mL Take 10 mL Univers mine-pseudo 7-09 by mouth 3 it y of ephedrine-D 00:00: (three) [place] M (BROMFED 00 times Medical DM) 2-30-10 daily. Branch mg/5 mL syrup bromphenira 2019-0 Yes [id number] 10mL Take 10 mL Univers mine-pseudo 7-09 by mouth 3 it y of ephedrine-D 00:00: (three) [place] M (BROMFED 00 times Medical DM) 2-30-10 daily. Branch mg/5 mL syrup bromphenira 2019-0 Yes [id number] 10mL Take 10 mL Univers mine-pseudo 7-09 by mouth 3 it y of ephedrine-D 00:00: (three) [place] M (BROMFED 00 times Medical DM) 2-30-10 daily. Branch mg/5 mL syrup bromphenira 2019-0 Yes [id number] 10mL Take 10 mL Univers mine-pseudo 7-09 by mouth 3 it y of ephedrine-D 00:00: (three) [place] M (BROMFED 00 times Medical DM) 2-30-10 daily. Branch mg/5 mL syrup bromphenira 2019-0 Yes [id number] 10mL Take 10 mL Univers mine-pseudo 7-09 by mouth 3 it y of ephedrine-D 00:00: (three) [place] (BROMFED 00 times Medical DM) 2-30-10 daily. Branch mg/5 mL syrup bromphenira 2019-0 Yes [id number] 10mL Take 10 mL Univers mine-pseudo 7-09 by mouth 3 it y of ephedrine-D 00:00: (three) [place] (BROMFED 00 times Medical DM) 2-30-10 daily. Branch mg/5 mL syrup bromphenira 2019-0 Yes [id number] 10mL Take 10 mL Univers mine-pseudo 7-09 by mouth 3 it y of ephedrine-D 00:00: (three) [place] M (BROMFED 00 times Medical DM) 2-30-10 daily. Branch mg/5 mL syrup bromphenira 2019-0 Yes [id number] 10mL Take 10 mL Univers mine-pseudo 7-09 by mouth 3 it y of ephedrine-D 00:00: (three) [place] (BROMFED 00 times Medical DM) 2-30-10 daily. Branch mg/5 mL syrup bromphenira 2019-0 Yes [id number] 10mL Take 10 mL Univers mine-pseudo 7-09 by mouth 3 it y of ephedrine-D 00:00: (three) [place] (BROMFED 00 times Medical DM) 2-30-10 daily. Branch mg/5 mL syrup bromphenira 2019-0 Yes [id number] 10mL Take 10 mL Univers mine-pseudo 7-09 by mouth 3 it y of ephedrine-D 00:00: (three) [place] (BROMFED 00 times Medical DM) 2-30-10 daily. Branch mg/5 mL syrup bromphenira 2019-0 Yes [id number] 10mL Take 10 mL Univers mine-pseudo 7-09 by mouth 3 it y of ephedrine-D 00:00: (three) [place] (BROMFED 00 times Medical DM) 2-30-10 daily. Branch mg/5 mL syrup bromphenira 2019-0 Yes [id number] 10mL Take 10 mL Univers mine-pseudo 7-09 by mouth 3 it y of ephedrine-D 00:00: (three) [place] (BROMFED 00 times Medical DM) 2-30-10 daily. Branch mg/5 mL syrup bromphenira 2019-0 Yes [id number] 10mL Take 10 mL Univers mine-pseudo 7-09 by mouth 3 it y of ephedrine-D 00:00: (three) [place] (BROMFED 00 times Medical DM) 2-30-10 daily. Branch mg/5 mL syrup bromphenira 2019-0 Yes [id number] 10mL Take 10 mL Univers mine-pseudo 7-09 by mouth 3 it y of ephedrine-D 00:00: (three) [place] (BROMFED 00 times Medical DM) 2-30-10 daily. Branch mg/5 mL syrup bromphenira 2019-0 Yes [id number] 10mL Take 10 mL Univers mine-pseudo 7-09 by mouth 3 it y of ephedrine-D 00:00: (three) [place] (BROMFED 00 times Medical DM) 2-30-10 daily. Branch mg/5 mL syrup bromphenira 2019-0 Yes [id number] 10mL Take 10 mL Univers mine-pseudo 7-09 by mouth 3 it y of ephedrine-D 00:00: (three) [place] (BROMFED 00 times Medical DM) 2-30-10 daily. Branch mg/5 mL syrup peg-electro 2016-06 Yes Take as Uni vers lyte soln 06-30 directed ity of [id number] 00:00: [place] .74 -5.86 00 colonoscop Medi norman gram y Branch solution peg-electro 2016-06 2020- No Take as [facility] lyte soln 06-30-05 directed ity o f 236-22.74-6 00:00: 00:00 before [place] .74 -5.86 00 :00 colonoscop Medi norman gram y Branch solution estradiol 2 2016-06 Yes 2mg Take 1 Univ ers mg tablet 0-23 tablet by ity o f 00:00: mouth [place] 00 daily. Medical Branch estradiol 2 2016-06 Yes 2mg Take 1 Univ ers mg tablet 0-23 tablet by ity o f 00:00: mouth [place] 00 daily. Medical Branch estradiol 2 2016-06 Yes 2mg Take 1 Univ ers mg tablet 0-23 tablet by ity o f 00:00: mouth [place] 00 daily. Medical Branch estradiol 2 2016-06 Yes 2mg Take 1 Univ ers mg tablet 0-23 tablet by ity o f 00:00: mouth [place] 00 daily. Medical Branch estradiol 2 2016-06 Yes 2mg Take 1 Univ ers mg tablet 0-23 tablet by ity o f 00:00: mouth [place] 00 daily. Medical Branch estradiol 2 2016-06 Yes 2mg Take 1 Univ ers mg tablet 0-23 tablet by ity o f 00:00: mouth [place] 00 daily. Medical Branch estradiol 2 2016-06 Yes 2mg Take 1 Univ ers mg tablet 0-23 tablet by ity o f 00:00: mouth [place] 00 daily. Medical Branch estradiol 2 2016-06 Yes 2mg Take 1 Univ ers mg tablet 0-23 tablet by ity o f 00:00: mouth [place] 00 daily. Medical Branch estradiol 2 2016-06 Yes 2mg Take 1 Univ ers mg tablet 0-23 tablet by ity o f 00:00: mouth [place] 00 daily. Medical Branch estradiol 2 2016-06 Yes 2mg Take 1 Univ ers mg tablet 0-23 tablet by ity o f 00:00: mouth [place] 00 daily. Medical Branch estradiol 2 2016-06 Yes 2mg Take 1 Univ ers mg tablet 0-23 tablet by ity o f 00:00: mouth [place] 00 daily. Medical Branch estradiol 2 2016-06 Yes 2mg Take 1 Univ ers mg tablet 0-23 tablet by ity o f 00:00: mouth [place] 00 daily. Medical Branch estradiol 2 2016-06 Yes 2mg Take 1 Univ ers mg tablet 0-23 tablet by ity o f 00:00: mouth [place] 00 daily. Medical Branch estradiol 2 2016-06 Yes 2mg Take 1 Univ ers mg tablet 0-23 tablet by ity o f 00:00: mouth [place] 00 daily. Medical Branch estradiol 2 2016-06 Yes 2mg Take 1 Univ ers mg tablet 0-23 tablet by ity o f 00:00: mouth [place] 00 daily. Medical Branch estradiol 2 2016-06 Yes 2mg Take 1 Univ ers mg tablet 0-23 tablet by ity o f 00:00: mouth [place] 00 daily. Medical Branch estradiol 2 2016-06 Yes 2mg Take 1 Univ ers mg tablet 0-23 tablet by ity o f 00:00: mouth [place] 00 daily. Medical Branch ibuprofen Yes 600mg Take 1 Unive rs 600 mg 9-14 tablet by ity of tablet 00:00: mouth [place] 00 every 6 Medical (six) Branch hours as needed for Pain (scale 1-3) or Pain (scale 4-6). docusate 2017-0 Yes 100mg Take 1 Univer s 100 mg 9-14 capsule by ity of capsule 00:00: mouth 2 [place] 00 (two) Medical times Branch daily as needed for Constipati on. HYDROcodone 2017-0 Yes 1{tbl} Take 1 Un [facility] -acetaminop 9-14 tablet by ity of hen 5-325 00:00: mouth [place] mg tablet 00 every 6 Medical (six) Branch hours as needed for Pain (scale 4-6) or Pain (scale 7-10). ibuprofen 2017-0 Yes 600mg Take 1 Unive rs 600 mg 9-14 tablet by ity of tablet 00:00: mouth [place] 00 every 6 Medical (six) Branch hours as needed for Pain (scale 1-3) or Pain (scale 4-6). docusate 2017-0 Yes 100mg Take 1 Univer s 100 mg 9-14 capsule by ity of capsule 00:00: mouth 2 [place] 00 (two) Medical times Branch daily as needed for Constipati on. HYDROcodone 2017-0 Yes 1{tbl} Take 1 [facility] [place] -acetaminop 9-14 tablet by ity of hen 5-325 00:00: mouth [place] mg tablet 00 every 6 Medical (six) Branch hours as needed for Pain (scale 4-6) or Pain (scale 7-10). ibuprofen 2017-0 Yes 600mg Take 1 Unive rs 600 mg 9-14 tablet by ity of tablet 00:00: mouth [place] 00 every 6 Medical (six) Branch hours as needed for Pain (scale 1-3) or Pain (scale 4-6). docusate 2017-0 Yes 100mg Take 1 Univer s 100 mg 9-14 capsule by ity of capsule 00:00: mouth 2 [place] 00 (two) Medical times Branch daily as needed for Constipati on. HYDROcodone 2017-0 Yes 1{tbl} Take 1 [facility] -acetaminop 9-14 tablet by ity of hen 5-325 00:00: mouth [place] mg tablet 00 every 6 Medical (six) Branch hours as needed for Pain (scale 4-6) or Pain (scale 7-10). ibuprofen 2017-0 Yes 600mg Take 1 Unive rs 600 mg 9-14 tablet by ity of tablet 00:00: mouth [place] 00 every 6 Medical (six) Branch hours as needed for Pain (scale 1-3) or Pain (scale 4-6). docusate 2017-0 Yes 100mg Take 1 Univer s 100 mg 9-14 capsule by ity of capsule 00:00: mouth 2 [place] 00 (two) Medical times Branch daily as needed for Constipati on. ibuprofen 2017-0 Yes 600mg Take 1 Unive rs 600 mg 9-14 tablet by ity of tablet 00:00: mouth [place] 00 every 6 Medical (six) Branch hours as needed for Pain (scale 1-3) or Pain (scale 4-6). HYDROcodone 2017-0 Yes 1{tbl} Take 1 [facility] -acetaminop 9-14 tablet by ity of hen 5-325 00:00: mouth [place] mg tablet 00 every 6 Medical (six) Branch hours as needed for Pain (scale 4-6) or Pain (scale 7-10). ibuprofen 2017-0 Yes 600mg Take 1 Unive rs 600 mg 9-14 tablet by ity of tablet 00:00: mouth [place] 00 every 6 Medical (six) Branch hours as needed for Pain (scale 1-3) or Pain (scale 4-6). docusate 2017-0 Yes 100mg Take 1 Univer s 100 mg 9-14 capsule by ity of capsule 00:00: mouth 2 [place] 00 (two) Medical times Branch daily as needed for Constipati on. docusate 2017-0 Yes 100mg Take 1 Univer s 100 mg 9-14 capsule by ity of capsule 00:00: mouth 2 [place] 00 (two) Medical times Branch daily as needed for Constipati on. HYDROcodone 2017-0 Yes 1{tbl} Take 1 [facility] -acetaminop 9-14 tablet by ity of hen 5-325 00:00: mouth [place] mg tablet 00 every 6 Medical (six) Branch hours as needed for Pain (scale 4-6) or Pain (scale 7-10). HYDROcodone 2017-0 Yes 1{tbl} Take 1 [facility] -acetaminop 9-14 tablet by ity of hen 5-325 00:00: mouth [place] mg tablet 00 every 6 Medical (six) Branch hours as needed for Pain (scale 4-6) or Pain (scale 7-10). ibuprofen 2017-0 Yes 600mg Take 1 Unive rs 600 mg 9-14 tablet by ity of tablet 00:00: mouth [place] 00 every 6 Medical (six) Branch hours as needed for Pain (scale 1-3) or Pain (scale 4-6). docusate 2017-0 Yes 100mg Take 1 Univer s 100 mg 9-14 capsule by ity of capsule 00:00: mouth 2 [place] 00 (two) Medical times Branch daily as needed for Constipati on. HYDROcodone 2017-0 Yes 1{tbl} Take 1 Un [facility] -acetaminop 9-14 tablet by ity of hen 5-325 00:00: mouth [place] mg tablet 00 every 6 Medical (six) Branch hours as needed for Pain (scale 4-6) or Pain (scale 7-10). ibuprofen 2017-0 Yes 600mg Take 1 Unive rs 600 mg 9-14 tablet by ity of tablet 00:00: mouth [place] 00 every 6 Medical (six) Branch hours as needed for Pain (scale 1-3) or Pain (scale 4-6). docusate 2017-0 Yes 100mg Take 1 Univer s 100 mg 9-14 capsule by ity of capsule 00:00: mouth 2 [place] 00 (two) Medical times Branch daily as needed for Constipati on. HYDROcodone 2017-0 Yes 1{tbl} Take 1 Un [facility] -acetaminop 9-14 tablet by ity of hen 5-325 00:00: mouth [place] mg tablet 00 every 6 Medical (six) Branch hours as needed for Pain (scale 4-6) or Pain (scale 7-10). ibuprofen 2017-0 Yes 600mg Take 1 Unive rs 600 mg 9-14 tablet by ity of tablet 00:00: mouth [place] 00 every 6 Medical (six) Branch hours as needed for Pain (scale 1-3) or Pain (scale 4-6). docusate 2017-0 Yes 100mg Take 1 Univer s 100 mg 9-14 capsule by ity of capsule 00:00: mouth 2 [place] 00 (two) Medical times Branch daily as needed for Constipati on. HYDROcodone 2017-0 Yes 1{tbl} Take 1 Un [facility] -acetaminop 9-14 tablet by ity of hen 5-325 00:00: mouth [place] mg tablet 00 every 6 Medical (six) Branch hours as needed for Pain (scale 4-6) or Pain (scale 7-10). ibuprofen 2017-0 Yes 600mg Take 1 Unive rs 600 mg 9-14 tablet by ity of tablet 00:00: mouth [place] 00 every 6 Medical (six) Branch hours as needed for Pain (scale 1-3) or Pain (scale 4-6). docusate 2017-0 Yes 100mg Take 1 Univer s 100 mg 9-14 capsule by ity of capsule 00:00: mouth 2 [place] 00 (two) Medical times Branch daily as needed for Constipati on. HYDROcodone 2017-0 Yes 1{tbl} Take 1 Un [facility] -acetaminop 9-14 tablet by ity of hen 5-325 00:00: mouth [place] mg tablet 00 every 6 Medical (six) Branch hours as needed for Pain (scale 4-6) or Pain (scale 7-10). ibuprofen 2017-0 Yes 600mg Take 1 Unive rs 600 mg 9-14 tablet by ity of tablet 00:00: mouth [place] 00 every 6 Medical (six) Branch hours as needed for Pain (scale 1-3) or Pain (scale 4-6). docusate 2017-0 Yes 100mg Take 1 Univer s 100 mg 9-14 capsule by ity of capsule 00:00: mouth 2 [place] 00 (two) Medical times Branch daily as needed for Constipati on. HYDROcodone 2017-0 Yes 1{tbl} Take 1 Un [facility] -acetaminop 9-14 tablet by ity of hen 5-325 00:00: mouth [place] mg tablet 00 every 6 Medical (six) Branch hours as needed for Pain (scale 4-6) or Pain (scale 7-10). ibuprofen 2017-0 Yes 600mg Take 1 Unive rs 600 mg 9-14 tablet by ity of tablet 00:00: mouth [place] 00 every 6 Medical (six) Branch hours as needed for Pain (scale 1-3) or Pain (scale 4-6). docusate 2017-0 Yes 100mg Take 1 Univer s 100 mg 9-14 capsule by ity of capsule 00:00: mouth 2 [place] 00 (two) Medical times Branch daily as needed for Constipati on. HYDROcodone 2017-0 Yes 1{tbl} Take 1 [facility] -acetaminop 9-14 tablet by ity of hen 5-325 00:00: mouth [place] mg tablet 00 every 6 Medical (six) Branch hours as needed for Pain (scale 4-6) or Pain (scale 7-10). ibuprofen 2017-0 Yes 600mg Take 1 Unive rs 600 mg 9-14 tablet by ity of tablet 00:00: mouth [place] 00 every 6 Medical (six) Branch hours as needed for Pain (scale 1-3) or Pain (scale 4-6). docusate 2017-0 Yes 100mg Take 1 Univer s 100 mg 9-14 capsule by ity of capsule 00:00: mouth 2 [place] 00 (two) Medical times Branch daily as needed for Constipati on. HYDROcodone 2017-0 Yes 1{tbl} Take 1 Un [place] -acetaminop 9-14 tablet by ity of hen 5-325 00:00: mouth [place] mg tablet 00 every 6 Medical (six) Branch hours as needed for Pain (scale 4-6) or Pain (scale 7-10). ibuprofen 2017-0 Yes 600mg Take 1 Unive rs 600 mg 9-14 tablet by ity of tablet 00:00: mouth [place] 00 every 6 Medical (six) Branch hours as needed for Pain (scale 1-3) or Pain (scale 4-6). docusate 2017-0 Yes 100mg Take 1 Univer s 100 mg 9-14 capsule by ity of capsule 00:00: mouth 2 [place] 00 (two) Medical times Branch daily as needed for Constipati on. ibuprofen 2017-0 Yes 600mg Take 1 Unive rs 600 mg 9-14 tablet by ity of tablet 00:00: mouth [place] 00 every 6 Medical (six) Branch hours as needed for Pain (scale 1-3) or Pain (scale 4-6). HYDROcodone 2017-0 Yes 1{tbl} Take 1 Un [facility] -acetaminop 9-14 tablet by ity of hen 5-325 00:00: mouth [place] mg tablet 00 every 6 Medical (six) Branch hours as needed for Pain (scale 4-6) or Pain (scale 7-10). docusate 2017-0 Yes 100mg Take 1 Univer s 100 mg 9-14 capsule by ity of capsule 00:00: mouth 2 [place] 00 (two) Medical times Branch daily as needed for Constipati on. HYDROcodone 2017-0 Yes 1{tbl} Take 1 [facility] -acetaminop 9-14 tablet by ity of hen 5-325 00:00: mouth [place] mg tablet 00 every 6 Medical (six) Branch hours as needed for Pain (scale 4-6) or Pain (scale 7-10). ibuprofen Yes 600mg Take 1 Unive rs 600 mg 9-14 tablet by ity of tablet 00:00: mouth [place] 00 every 6 Medical (six) Branch hours as needed for Pain (scale 1-3) or Pain (scale 4-6). docusate Yes 100mg Take 1 Univer s 100 mg 9-14 capsule by ity of capsule 00:00: mouth 2 [place] 00 (two) Medical times Branch daily as needed for Constipati on. HYDROcodone Yes 1{tbl} Take 1 Un [facility] -acetaminop 9-14 tablet by ity of hen 5-325 00:00: mouth [place] mg tablet 00 every 6 Medical (six) Branch hours as needed for Pain (scale 4-6) or Pain (scale 7-10). ibuprofen Yes 600mg Take 1 Unive rs 600 mg 9-14 tablet by ity of tablet 00:00: mouth [place] 00 every 6 Medical (six) Branch hours as needed for Pain (scale 1-3) or Pain (scale 4-6). docusate Yes 100mg Take 1 Univer s 100 mg 9-14 capsule by ity of capsule 00:00: mouth 2 [place] 00 (two) Medical times Branch daily as needed for Constipati on. HYDROcodone Yes 1{tbl} Take 1 Un [facility] -acetaminop 9-14 tablet by ity of hen 5-325 00:00: mouth [place] mg tablet 00 every 6 Medical (six) Branch hours as needed for Pain (scale 4-6) or Pain (scale 7-10). Immunizations Ordered Filled Immunization Date Status Comments [facility] e Immunization Name Name Pfizer COVID-19 Pfizer COVID-19 2021-02-25 Completed Vaccine Vaccine 00:00:00 Pfizer COVID-19 Pfizer COVID-19 2021-02-04 Completed Vaccine Vaccine 00:00:00 diphtheria/pertussi Unknown Completed Memor ial s, acel/tetanus [place] adult<sup>1</sup> [id number] Unknown Completed Memor ial [id number] [place] ER<sup>2</sup> [id number] Unknown Completed Memor ial [id number] [place] ER<sup>3</sup> Vital Signs Vital Name Observation Time Observation Value Comments Source Systolic blood 2021-08-02 18:56:00 133 mm[Hg] Univer sity of pressure [facility] Diastolic blood 2021-08-02 18:56:00 88 mm[Hg] Unive rsity of pressure [facility] Heart rate 2021-08-02 18:56:00 84 /min Universi ty of [facility] Body temperature 2021-08-02 18:56:00 37.17 [facility] Respiratory rate 2021-08-02 18:56:00 20 /[facility] 2021-08-02 18:56:00 99 /min [facility] Arterial blood by [facility] [place] Pulse oximetry Branch Body weight 2021-08-02 15:15:00 95.255 kg Universi ty of [facility] BMI 2021-08-02 15:15:00 33.89 kg/m2 Universi ty [facility] Systolic blood 2020-01-26 18:16:00 128 mm[Hg] Univer sity of pressure [facility] Diastolic blood 2020-01-26 18:16:00 84 mm[Hg] Unive rsity of pressure [facility] Heart rate 2020-01-26 18:16:00 74 /min Universi ty of [facility] Respiratory rate 2020-01-26 18:16:00 19 /min Univ ersity of [facility] Body height 2020-01-26 18:16:00 167.6 cm Universi ty of [facility] Body weight 2020-01-26 18:16:00 99.247 kg Universi ty of [facility] BMI 2020-01-26 18:16:00 35.32 kg/m2 Universi ty [facility] Systolic blood 2020-01-12 18:31:00 117 mm[Hg] Univer sity of pressure [facility] Diastolic blood 2020-01-12 18:31:00 81 mm[Hg] Unive rsity of pressure [facility] Heart rate 2020-01-12 18:31:00 78 /min [facility] Body temperature 2020-01-12 18:31:00 37 Zoila [facility] [place] [facility] Respiratory rate 2020-01-12 18:31:00 18 /min [facility] Body weight 2020-01-12 18:31:00 98.249 kg [facility] BMI 2020-01-12 18:31:00 34.96 kg/m2 [facility] BMI 2019-12-29 19:37:00 36.41 kg/m2 [facility] Systolic blood 2019-12-29 19:37:00 134 mm[Hg] Univer sity of pressure [facility] Diastolic blood 2019-12-29 19:37:00 83 mm[Hg] Unive rsity of pressure [place] [facility] Heart rate 2019-12-29 19:37:00 103 /min Universi ty of [facility] Body temperature 2019-12-29 19:37:00 36.72 Zoila Univ [facility] Respiratory rate 2019-12-29 19:37:00 18 /min Univ [facility] Body weight 2019-12-29 19:37:00 102.331 kg [facility] Systolic blood 2019-12-28 17:00:00 106 mm[Hg] Univer sity of pressure [facility] Diastolic blood 2019-12-28 17:00:00 69 mm[Hg] Unive rsity of pressure [facility] Heart rate 2019-12-28 17:00:00 89 /min [facility] [place] [facility] Respiratory rate 2019-12-28 17:00:00 16 /min Univ ersity of [facility] Branch Oxygen saturation in 2019-12-28 17:00:00 95 /min University Arterial blood by [facility] Pulse oximetry Branch Body temperature 2019-12-27 23:17:00 37.44 Zoila Univ ersity [facility] [place] [facility] [place] Body weight 2019-12-27 23:17:00 88.497 kg [facility] [place] [facility] BMI 2019-12-27 23:17:00 31.49 kg/m2 Universi ty of [facility] Heart Rate 2021-11-17 19:41:00 [facility] Respitory Rate 2021-11-17 19:41:00 [facility] Systolic (mm Hg) 2021-11-17 19:41:00 Skip rial [place] Diastolic (mm Hg) 2021-11-17 19:41:00 [facility] [place] Height 2021-11-17 19:41:00 168.91 cm [facility] [place] Weight 2021-11-17 19:41:00 [facility] [place] BMI Calculated 2021-11-17 19:41:00 Memori [facility] [place] Heart Rate 2021-09-09 14:22:00 [facility] [place] Systolic (mm Hg) 2021-09-09 14:22:00 Skip rial [place] Diastolic (mm Hg) 2021-09-09 14:22:00 Mem o[facility] [place] Height 2021-09-09 14:22:00 167.64 cm [facility] Weight 2021-09-09 14:22:00 [facility] [place] BMI Calculated 2021-09-09 14:22:00 [facility] Heart Rate 2021-09-02 15:20:00 [facility] Systolic (mm Hg) 2021-09-02 15:20:00 Skip rial [place] Diastolic (mm Hg) 2021-09-02 15:20:00 Mem orial [place] Height 2021-09-02 15:20:00 167.64 cm [facility] Weight 2021-09-02 15:20:00 [facility] [place] BMI Calculated 2021-09-02 15:20:00 Memori [facility] Weight 2021-08-27 18:01:00 [facility] [place] Heart Rate 2021-08-27 16:44:53 [facility] Respitory Rate 2021-08-27 16:44:53 [facility] Systolic (mm Hg) 2021-08-27 16:44:32 Skip rial [place] Diastolic (mm Hg) 2021-08-27 16:44:32 Mem [facility] Heart Rate 2021-08-27 16:44:32 [facility] Temperature Oral (F) 2021-08-27 16:44:05 98 F [facility] [place] Heart Rate 2021-08-27 13:47:57 [facility] Respitory Rate 2021-08-27 13:47:57 [facility] [place] Systolic (mm Hg) 2021-08-27 13:47:48 Skip rial [place] Diastolic (mm Hg) 2021-08-27 13:47:48 Mem [facility] [place] Temperature Oral (F) 2021-08-27 13:47:19 99.1 F [facility] [place] Respitory Rate 2021-08-27 08:53:35 [facility] [place] Systolic (mm Hg) 2021-08-27 08:52:29 Skip rial [place] Diastolic (mm Hg) 2021-08-27 08:52:29 Mem [facility] [place] Temperature Oral (F) 2021-08-27 08:51:57 98.3 F [facility] [place] Height 2021-08-27 02:18:00 167.64 cm [facility] [place] Weight 2021-08-27 02:18:00 [facility] BMI Calculated 2021-08-27 02:18:00 [facility] Weight 2021-08-25 17:49:00 [facility] Height 2021-08-24 20:12:00 167.64 cm [facility] [place] BMI Calculated 2021-08-24 20:12:00 [facility] [place] Heart Rate 2021-08-24 17:16:00 [facility] [place] Systolic (mm Hg) 2021-08-24 17:16:00 Skip rial [place] Diastolic (mm Hg) 2021-08-24 17:16:00 Mem orial [place] Weight 2021-08-24 17:16:00 [facility] Height 2021-08-24 17:16:00 168.9 cm [facility] BMI Calculated 2021-08-24 17:16:00 [facility] Heart Rate 2021-08-19 22:04:00 [facility] [place] Systolic (mm Hg) 2021-08-19 22:04:00 Skip rial [place] Diastolic (mm Hg) 2021-08-19 22:04:00 Mem orial [place] Height 2021-08-19 22:04:00 168.91 cm [facility] [place] Weight 2021-08-19 22:04:00 [facility] BMI Calculated 2021-08-19 22:04:00 [facility] Procedures Procedure Date / Time Performing Clinician Source Performed CT ABDOMEN PELVIS W 2021-08-02 17:30:00 Kathy Ford [facility] CONTRAST Medical Branch LIPASE 2021-08-02 16:44:00 Kathy Ford [facility] [place] COMP. METABOLIC PANEL 2021-08-02 16:44:00 Kathy Ford [facility] ([id number]) Medical Branch CBC WITH DIFF 2021-08-02 16:44:00 Kathy Ford [facility] CONSENT/REFUSAL FOR 2021-08-02 15:14:01 Doctor Unassigned, [facility] DIAGNOSIS AND TREATMENT [place] [facility] [place] BASIC METABOLIC PANEL 2019-12-28 14:49:00 Alcides Andrewhil [facility] (NA, K, CL, CO2, GLUCOSE, Medica l Branch BUN, CREATININE, CA) CBC WITH DIFFERENTIAL 2019-12-28 14:48:00 Kamran Zeke [facility] COVID-19 (ID NOW RAPID 2019-12-28 14:23:00 Kathy Ford [facility] TESTING) Medical Branch CT ABDOMEN PELVIS W 2019-12-28 01:13:45 Héctor Duvall [facility] CONTRAST Medical Branch URINALYSIS 2019-12-27 23:45:00 Jadiel [facility] BLOOD CULTURE SCREEN 2019-12-27 23:43:00 Héctor Duvall [facility] LIPASE 2019-12-27 23:42:00 Jadiel [facility] COMP. METABOLIC PANEL 2019-12-27 23:42:00 Héctor Duvall [facility] ([id number]) Medical Branch CBC WITH DIFFERENTIAL 2019-12-27 23:42:00 [facility] LACTIC ACID WHOLE BLOOD 2019-12-27 23:42:00 Héctor Duvall [facility] AUTHORIZATION FOR RELEASE 2019-02-27 05:01:00 Doctor Unassigned, [facility] [place] [facility] [place] History of total 2017-10-23 05:00:00 [facility] hysterectomy Sampling of cervix for [facility] Papanicolaou smear Mammogram [facility] Abdominoplasty [facility] Appendectomy [facility] Encounters Start End Encounter Admission Attending Care Care Encounter Source Date/Time Date/Time Type Type Clinicians Facility Department ID 2021-09-02 Outpatient LYNN [facility] [id number] [place] 11:26:09 SHADI lema 2021-04-22 Emergency [facility] [id number] [facility] 04:42:35 [facility] 2023-05-22 2023-05-22 Outpatient MHIE MHIE [id number] Memoria 13:00:00 13:00:00 11 oneil TrinidadMoustapha 2023-04-21 2023-04-21 Outpatient GC_GCBZW_Ka PRIV PRIV [id number] [facility] 00:00:00 00:00:00 diyala_S [id number] Medic al 2022-01-20 2022-01-20 Ambulatory nullFlavo MHMG [id number] Memoria 18:15:00 18:15:00 Pre-Reg r Primary 10 l Sammy Gerard [place] 2022-01-20 2022-01-20 Outpatient MHIE MHIE [id number] Memoria 13:15:00 13:15:00 10 oneil [facility] 2022-01-20 2022-01-20 Outpatient Elhor MHMG MHMG [id number] 13:15:00 13:15:00 MaximoMichele flemingjasonsurjit Malissa 2021-11-22 2021-11-23 Between nullFlavo MHMG [id number] Memoria 15:44:08 15:44:08 Visit r Primary 03 l Sammy [place] 2021-11-22 2021-11-23 Outpatient MHMG MHMG [id number] 10:44:08 10:44:08 03 2021-11-17 2021-11-18 Outpatient nullFlavo MHMG [id number] Memoria 19:30:00 04:59:59 r Primary 09 l Sammy [place] 2021-11-17 2021-11-17 Outpatient Myrna, MHMG MHMG [id number] 14:30:00 23:59:59 Dianne 09 Jean-Pierre 2021-11-17 2021-11-17 Outpatient MHIE MHIE [id number] Memoria 14:30:00 14:30:00 09 oneil Gerard 2021-10-19 2021-10-19 [place] [id number] Memoria 18:45:00 18:45:00 Pre-Reg r Primary 08 [facility] 2021-10-19 2021-10-19 Outpatient Myrna, MHMG MG [id number] 13:45:00 13:45:00 Dianne 08 Jean-Pierre 2021-10-13 2021-10-13 Outpatient MHIE IE [id number] Memoria 15:30:00 15:30:00 08 [facility] 2021-09-09 2021-09-10 Outpatient nullFlavo MHMG Multi 55 [id number] Memoria 14:15:00 04:59:59 r Specialty 06 [facility] 2021-09-09 2021-09-09 Outpatient Edgardowayaa, MG MG [id number] 09:15:00 23:59:59 Kaity 06 2021-09-09 2021-09-09 Outpatient ANTONIIE IE [id number] Memoria 09:15:00 09:15:00 06 [facility] 2021-09-02 2021-09-03 Outpatient nullFlavo MHMG Multi [id number] Memoria 15:00:00 05:59:59 r Specialty 05 [facility] 2021-09-02 2021-09-02 Outpatient Edgardowayaa, MG MG [id number] 09:00:00 23:59:59 Kaity 05 2021-09-02 2021-09-02 Outpatient ANTONIIE IE [id number] Memoria 09:00:00 09:00:00 05 oneil [place] 2021-08-30 2021-09-01 Phone nullFlavo MG [id number] Memoria 22:24:17 05:59:59 Message r General 01 [facility] 2021-08-30 2021-08-31 Outpatient MHMG MG [id number] 16:24:17 23:59:59 2021-08-31 2021-08-31 [place] [id number] Memoria 14:45:00 14:45:00 Pre-Reg r General 04 [facility] 2021-08-31 2021-08-31 Outpatient MHIE MHIE [id number] Memoria 08:45:00 08:45:00 04 [facility] 2021-08-31 2021-08-31 Outpatient Miguelangelyaa ANTONIMG MHMG [id number] 08:45:00 08:45:00 Kaity 04 2021-08-26 2021-08-27 Observatio nullFlavo [facility] [id number] Memoria 23:59:00 18:42:00 [facility] 00 [facility] 2021-08-26 2021-08-27 Outpatient MOVVA, MHBL MED [id number] MHBL 17:59:00 12:42:00 DILAN 2021-08-26 2021-08-27 Outpatient Movva, MHPL MHPL [id number] 17:59:00 12:42:00 Dilan 00 2021-08-26 2021-08-27 Outpatient Movva, MHPL MHPL [id number] 17:59:00 12:42:00 Dilan 00 2021-08-26 2021-08-26 Outpatient MHIE MHIE [id number] Memoria 12:00:00 12:00:00 03 [facility] 2021-08-26 2021-08-26 Outpatient MHIE MHIE [id number] Memoria 07:15:00 07:15:00 01 [facility] 2021-08-26 2021-08-26 Outpatient MHIE MHIE [id number] Memoria 07:00:00 07:00:00 07 [facility] 2021-08-24 2021-08-26 Phone nullFlavo MG [id number] Memoria 22:13:49 05:59:59 Message r Primary 00 [facility] 2021-08-24 2021-08-25 Outpatient MHMG MHMG [id number] 16:13:49 23:59:59 00 2021-08-24 2021-08-25 Outpatient nullFlavo MHMG [id number] Memoria 17:00:00 05:59:59 r General 02 [facility] 2021-08-24 2021-08-24 Outpatient Caitlin MG MHMG [id number] 11:00:00 23:59:59 Kaity 2021-08-24 2021-08-24 Outpatient MHIE MHIE [id number] Memoria 11:00:00 11:00:00 02 l Moustapha 2021-08-23 2021-08-24 Outpt Diag nullFlavo [facility] [id number] Memoria 14:23:00 05:59:00 Services r Outpatient 00 l Imaging Moustapha [place] 2021-08-23 2021-08-23 Outpatient Elhor MHOIP MHOIP [id number] 08:23:00 23:59:00 Gbito, 00 Akuvi Afefa 2021-08-19 2021-08-20 Outpatient nullFlavo MHMG [id number] Memoria 22:00:00 05:59:59 r Primary 00 l Care Moustapha [place] 2021-08-19 2021-08-19 Outpatient Elhor MHMG MHMG [id number] 16:00:00 23:59:59 Gbito, 00 Akuvi Afefa 2021-08-19 2021-08-19 Outpatient MHIE MHIE [id number] Memoria 16:00:00 16:00:00 00 l Moustapha 2021-08-02 2021-08-02 Emergency X FAULCONER, [facility] ERT [id number] Univers 09:17:00 14:06:00 KATHY ity of [facility] 2021-08-02 2021-08-02 Emergency Faulconer, TRAUMA 1.2.840.114 [id number] Univers 09:17:00 14:06:00 [facility] [id number] [id number] [phone] [facility] 014 Branch 2021-06-29 2021-06-29 Patient Doctor MAYCOL [id number] Univers 00:00:00 00:00:00 Secure Msg Unassigned, ANDREW [id number] ity of [place] [facility] [id number] [place] as [id number] [facility] 019 Branch 2021-02-25 2021-02-25 Outpatient GCCOVIDV GCCOVIDV [id number] GCCOVID 00:00:00 00:00:00 2021-02-04 2021-02-04 Outpatient GCCOVIDV GCCOVIDV [id number] GCCOVID 00:00:00 00:00:00 V 2020-09-07 2020-09-07 Patient [facility] 1.2.840.114 [id number] Univers 00:00:00 00:00:00 Outreach Andreas PRIMARY [id number] i [facility] [id number] [id number] Me dical 388 [place] 2020-07-29 2020-07-29 [facility] [id number] Univers 08:30:00 08:30:00 [facility] 2020-04-19 2020-04-19 [facility] [id number] Univers 14:45:00 14:45:00 [facility] 2020-03-09 2020-03-09 [facility] [id number] Univers 08:00:00 08:00:00 [facility] 2020-02-26 2020-02-26 [facility] [id number] Univers 16:15:00 16:15:00 [facility] 2020-02-24 2020-02-24 [facility] [id number] Univers 08:00:00 08:00:00 [facility] 2020-01-26 2020-01-28 Office [facility] 1.2.840.114 [id number] Univers 13:08:43 08:00:21 Visit Sabas Marie [id number] [facility] [id number] [phone] Me dical nal 201 [facility] 2020-01-26 2020-01-26 Outpatient Del[facility] [id number] Univers 13:00:00 13:00:00 [facility] 2020-01-12 2020-01-13 Office [facility] 1.2.840.114 [id number] Univers 13:24:34 10:06:16 Visit Sabas Marie [id number] ity [id number] [phone] Tn dical nal 201 [facility] 2020-01-12 2020-01-12 Outpatient R [facility] [id number] Univers 13:30:00 13:30:00 SABAS itgarett of [facility] 2020-01-08 2020-01-08 Telephone [facility] 1.2.840.114 [id number] Univers 00:00:00 00:00:00 Sabas Marie [id number] it[id number] [phone] Tn dical nal 201 [facility] 2020-01-06 2020-01-06 Telephone [facility] 1.2.840.114 [id number] Univers 00:00:00 00:00:00 Sabas Marie [id number] it[id number] [phone] Tn dical nal 204 [facility] 2019-12-29 2020-01-01 Office [facility] 1.2.840.114 [id number] Univers 14:26:05 08:06:58 Visit Sabas Marie [id number] it[id number] [phone] Tn dical nal 201 [facility] 2019-12-30 2019-12-30 Transition Ethan Phillips 1.2.840.114 [id number] Univers 00:00:00 00:00:00 of Care Isabel Tuttle [id number] i ty [id number] [phone] [address] 2019-12-29 2019-12-29 Outpatient R [facility] [id number] Univers 14:30:00 14:30:00 SABAS ahumada of [facility] 2019-12-27 2019-12-28 Hospital Héctor Duvall [place] 1.2.840.1 [id number] Univers 18:20:54 14:39:00 Encounter Andreas Linares [place] [id number] .[id number] ity of [place], [place] [id number] [place] [id number] [facility] 014 Branch 2019-12-09 2019-12-09 Outpatient R JASON, [facility] [id number] Univers 16:00:00 16:00:00 CARLOZ [facility] 2019-09-05 2019-09-05 Outpatient R UMU, [facility] [id number] Univers 13:30:00 13:30:00 PETER ity [facility] 2019-09-04 2019-09-04 Outpatient R JASON, [facility] [id number] Univers 14:20:00 14:20:00 CARLOZ [facility] 2019-02-27 2019-02-27 Orders Doctor SEVERINO 1.2.840.114 [id number] Univers 00:00:00 00:00:00 Only Unassigned, ANDREW [id number] ity of [place] [facility] [id number] [facility] as [phone] [address] Results Test Description Test Time Test Comments Results Result Comments Source CHEM PANEL 2021-11-18 20:38:00 Test Item Value Reference Range Interpretation Comme nts B/C Ratio (test code = B/C Ratio) NOT APPLICABLE 12-14 [facility] [employer] [id number] 20:38:00 Test Item Value Reference Range Interpretation Comments Sodium Lvl (test code = Sodium Lvl) 143 135-146 [facility] [employer] [id number] 20:38:00 Test Item Value Reference Range Interpretation Comments Potassium Lvl (test code = Potassium 3.7 3.5-5.3 Lvl) [facility] [employer] [id number] 20:38:00 Test Item Value Reference Range Interpretation Comments Chloride Lvl (test code = Chloride Lvl) 107 98-110 [facility] [employer] [id number] 20:38:00 Test Item Value Reference Range Interpretation Comments CO2 (test code = CO2) 28 20-32 [facility] [employer] [id number] 20:38:00 Test Item Value Reference Range Interpretation Comments Calcium Lvl (test code = Calcium Lvl) 9.1 8.6-10.[address]05-27 20:38:00 Test Item Value Reference Range Interpretation Comments Total Protein (test code = Total 7.1 6.1-8.1 Protein) [address] 20:38:00 Test Item Value Reference Range Interpretation Comments Albumin Lvl (test code = Albumin Lvl) 4.0 3.6-5.[address] 20:38:00 Test Item Value Reference Range Interpretation Comments Globulin (test code = Globulin) 3.1 1.9-3.[address] 20:38:00 Test Item Value Reference Range Interpretation Comments A/G Ratio (test code = A/G Ratio) 1.3 1.0-2.[address] 20:38:00 Test Item Value Reference Range Interpretation Comments Bili Total (test code = Bili Total) 0.5 0.2-1.[address] 20:38:00 Test Item Value Reference Range Interpretation Comments Alk Phos (test code = Alk Phos) 51 37-153 [address]05-27 20:38:00 Test Item Value Reference Range Interpretation Comments ASPARTATE TRANSAMINASE (test code = 15 10-35 ASPARTATE TRANSAMINASE) [address]27 20:38:00 Test Item Value Reference Range Interpretation Comments ALANINE AMINOTRANSFERASE (test code = 13 6-29 ALANINE AMINOTRANSFERASE) [address] 20:38:00 Test Item Value Reference Range Interpretation Comments Vitamin D, 25-OH, Total (test code = 14 30-100 Vitamin D, 25-OH, Total) [address]27 20:38:00 Test Item Value Reference Range Interpretation Comments WBC X 10x3 (test code = WBC X 10x3) 6.4 3.8-10.[address] 20:38:00 Test Item Value Reference Range Interpretation Comments RBC X 10x6 (test code = RBC X 10x6) 4.53 3.80-5.[address] 20:38:00 Test Item Value Reference Range Interpretation Comments Hgb (test code = Hgb) 13.3 11.7-15.5 [facility]53 20:38:00 Test Item Value Reference Range Interpretation Comments Hct (test code = Hct) 40.7 35.0-45.0 [facility]gbwqnmVFPBLHWOHK2267-47-70 20:38:00 Test Item Value Reference Range Interpretation Comments MCV (test code = MCV) 89.8 80.0-100.0 [place] [address]-05-27 20:38:00 Test Item Value Reference Range Interpretation Comments MCH (test code = MCH) 29.4 pg 27.0-33.0 [place] [address]-05-27 20:38:00 Test Item Value Reference Range Interpretation Comments MCHC (test code = MCHC) 32.7 32.0-36.0 [facility] HospitalCburxemTGKXWMAFOT8454-97-51 20:38:00 Test Item Value Reference Range Interpretation Comments RDW (test code = RDW) 14.6 11.0-15.0 [place] [id number] 20:38:00 Test Item Value Reference Range Interpretation Comments Platelet (test code = Platelet) 219 140-400 [facility]EwjdlvwZVNJISHJWV9949-17-17 20:38:00 Test Item Value Reference Range Interpretation Comments MPV (test code = MPV) 10.0 7.5-12.5 [place] 384112-05-27 20:38:00 Test Item Value Reference Range Interpretation Comments Neutrophils # (test code = Neutrophils 4352 0156-3631 #) [facility] HospitalGcbsrjnAEFOSWPFGV8336-68-31 20:38:00 Test Item Value Reference Range Interpretation Comments Lymphocytes # (test code = Lymphocytes 6142 348-8862 #) [facility] HospitalItryehvHEGIDEHJQH1953-83-03 20:38:00 Test Item Value Reference Range Interpretation Comments Monocytes # (test code = Monocytes #) 416 200-950 [place] 384112-05-27 20:38:00 Test Item Value Reference Range Interpretation Comments Eosinophils # (test code = Eosinophils 179 15-500 #) [place] [id number] 20:38:00 Test Item Value Reference Range Interpretation Comments Basophils # (test code = Basophils #) 51 <=200 [place] 384112-05-27 20:38:00 Test Item Value Reference Range Interpretation Comments Segs (test code = Segs) 68 [facility] HospitalWllkdavDUTSGZLREM4546-64-53 20:38:00 Test Item Value Reference Range Interpretation Comments Lymphocytes (test code = Lymphocytes) 21.9 [facility] HospitalIwximveWEJGTJIOWQ4669-15-20 20:38:00 Test Item Value Reference Range Interpretation Comments Monocytes (test code = Monocytes) 6.5 [facility]rVNHNZTSEFQ2021-51-45 20:38:00 Test Item Value Reference Range Interpretation Comments Eosinophils (test code = Eosinophils) 2.8 [facility] HospitalBzzujmaWAREMFYNWP9458-00-42 20:38:00 Test Item Value Reference Range Interpretation Comments Basophils (test code = Basophils) 0.8 [facility] HospitalXanwnzuVLBLKI4262-36-30 20:38:00 Test Item Value Reference Range Interpretation Comments Chol (test code = Chol) 225 [facility] HospitalAcdpzbhHXJQOK5892-32-93 20:38:00 Test Item Value Reference Range Interpretation Comments HDL (test code = HDL) 60 [facility] HospitalRennbodTYZCYE6820-42-46 20:38:00 Test Item Value Reference Range Interpretation Comments Trig (test code = Trig) 147 [facility] HospitalIwwdiirEPMPRE3683-09-12 20:38:00 Test Item Value Reference Range Interpretation Comments LDL (Calculated) (test code = LDL 138 (Calculated)) [facility] HospitalPelkxccUYVMLN7482-09-00 20:38:00 Test Item Value Reference Range Interpretation Comments CHD Risk (test code = CHD Risk) 3.8 [facility] HospitalXzqviwgNVMVFL7076-18-64 20:38:00 Test Item Value Reference Range Interpretation Comments Non HDL Chol (test code = Non HDL Chol) 165 [facility] [id number] 20:38:00 Test Item Value Reference Range Interpretation Comments Hgb A1C (test code = Hgb A1C) 5.6 [facility] [id number] 20:38:00 Test Item Value Reference Range Interpretation Comments Vitamin B12 Lvl (test code = Vitamin 209 994-2933 B12 Lvl) [facility] Hospital[facility] [id number] 20:38:00 Test Item Value Reference Range Interpretation Comments Glucose Lvl (test code = Glucose Lvl) 120 65-139 [facility] [id number] 20:38:00 Test Item Value Reference Range Interpretation Comments BUN (test code = BUN) 14 7-25 [facility] [id number] 20:38:00 Test Item Value Reference Range Interpretation Comments Creatinine Lvl (test code = Creatinine 0.88 0.50-1.05 Lvl) [facility] [id number] 20:38:00 Test Item Value Reference Range Interpretation Comments eGFR NON-AFR. SLOVENIAN (test code = 74 eGFR NON-AFR. SLOVENIAN) [facility] [id number] 20:38:00 Test Item Value Reference Range Interpretation Comments eGFR (test code = eGFR 86 ) [facility] HospitalPxlxogzUHQMSTBQZV7919-18-60 17:49:00 Test Item Value Reference Range Interpretation Comments Coronavirus (COVID-19) Not Detected (08/25/21 MARIA DEL CARMEN (test code = 11:49 AM) Coronavirus (COVID-19) MARIA DEL CARMEN) [facility] METABOLIC PANEL ([id number])2021-08-02 17:03:52 Test Item Value Reference Range Interpretation Comments NA (test code = 138 mmol/L 135-145 5462596409) K (test code = 4.7 mmol/L 3.5-5.0 Slight hemoly sis 0163225918) CL (test code = 106 mmol/L 98-108 9641345901) CO2 TOTAL (test 26 mmol/L 23-31 code = 4707169652) AGAP (test code = 2-16 2004534960) BUN (test code = 12 mg/dL 7-23 Slight hemo lysis 1362547430) GLUCOSE (test code 95 mg/dL 70-110 = 3993593932) CREATININE (test 0.73 mg/dL 0.50-1.04 code = 7554833979) TOTAL BILI (test 0.8 mg/dL 0.1-1.1 code = 1705658685) CALCIUM (test code 9.3 mg/dL 8.6-10.6 = 1894989742) T PROTEIN (test 7.8 g/dL 6.3-8.2 code = 8172682936) ALBUMIN (test code 4.5 g/dL 3.5-5.0 = 4655208127) ALK PHOS (test 53 U/L 34-122 Slight hemoly sis code = 0285116812) ALTv (test code = 29 U/L 5-35 1742-6) AST(SGOT) (test 36 U/L 13-40 Slight hemol ysis code = 5576364929) eGFR (test code = mL/min/1.73m2 1555965933) NNEKA (test code = Association of NNEKA) Glomerular Filtration Rate (GFR) and Staging of Kidney Disease* + ----+ ------+ +| GFR (mL/min/1.73 m2) ?| With Kidney Damage ?| ?Without Kidney Damage+ +--------- +------- +| ?>90 ?| ?Stage one ?| ? Normal ?+ -----+ -------+ +| ?60-89 ?| ?Stage two ?| ? Decreased GFR ? + ----+ ------+ +| ?30-59 ?| ?Stage three ?| ? Stage three ? + ----+ ------+ +| ?15-29 ?| ?Stage four ? | ? Stage four ?+ -----+ -------+ +| ?<15 (or dialysis) ? ?| ?Stage five ? | ? Stage five ?+ -----+ -------+ + *Each stage assumes the associated GFR level has been in effect for at least three months. ?Stages 1 to 5, with or without kidney disease, indicate chronic kidney disease. Notes: Determination of stages one and two (with eGFR >59mL/min/1.73 m2) requires estimation of kidney damage for at least three months as defined by structural or functional abnormalities of the kidney, manifested by either:Pathological abnormalities or Markers of kidney damage (including abnormalities in the composition of the blood or urine or abnormalities in imaging tests). [facility] Test Item Value Reference Range Interpretation Comments LIPASE (test code = 8903641883) 86 U/L 0-220 Lab Interpretation (test code = Normal 31093-8) [facility] [id number] 16:54:47 Test Item Value Reference Range Interpretation Comments WBC (test code = See_Comment [Automated message] 6690-2) The system [employer] generated this result transmitted ref erence range: 4.30 - 1 1.10 10*3/?L. The re ference range was not u sed to interpret this result as normal/abnor mal. RBC (test code = See_Comment [Automated message] 789-8) The system [employer] generated this result transmitted ref erence range: 3.93 - 5 .25 10*6/?L. The re ference range was not u sed to interpret this result as normal/abnor mal. HGB (test code = 13.1 g/dL 11.6-15.0 718-7) HCT (test code = 40.1 % 35.7-45.2 4544-3) MCV (test code = 91.8 fL 80.6-95.5 787-2) MCH (test code = 30.0 pg 25.9-32.8 785-6) MCHC (test code = 32.7 g/dL 31.6-35.1 786-4) RDW-SD (test code 44.6 fL 39.0-49.9 = 76834-6) RDW-CV (test code 13.2 % 12.0-15.5 = 788-0) PLT (test code = See_Comment [Automated message] 777-3) The system [employer] generated this result transmitted ref erence range: 166 - 35 8 10*3/?L. The re ference range was not u sed to interpret this result as normal/abnor mal. MPV (test code = 9.5 fL 9.5-12.9 38754-1) NRBC/100 WBC (test See_Comment [Automat ed message] code = 6321428781) The syste m which generated this result transmitted ref erence range: 0.0 - 10 .0 /100 WBCs. The refer ence range was not u sed to interpret this result as normal/abnor mal. NRBC x10^3 (test <0.01 See_Comment [Automated message] code = 8192135081) The syste m which generated this result transmitted ref erence range: 10*3/?L. The reference range was not used to interpr et this result as normal/abnormal . GRAN MAT (NEUT) % 65.1 % (test code = 770-8) IMM GRAN % (test 0.50 % code = 0347688002) LYMPH % (test code 23.4 % = 736-9) MONO % (test code 6.9 % = 5905-5) EOS % (test code = 3.5 % 713-8) BASO % (test code 0.6 % = 706-2) GRAN MAT 5.18 10*3/uL 1.88-7.09 x10^3(ANC) (test code = 6736875802) IMM GRAN x10^3 0.04 10*3/uL 0.00-0.06 (test code = 5769232792) LYMPH x10^3 (test 1.86 10*3/uL 1.32-3.29 code = 731-0) MONO x10^3 (test 0.55 10*3/uL 0.33-0.92 code = 742-7) EOS x10^3 (test 0.28 10*3/uL 0.03-0.39 code = 711-2) BASO x10^3 (test 0.05 10*3/uL 0.01-0.07 code = 704-7) [facility] Metabolic Panel (NA, K, CL, CO2, Glucose, BUN, Creatinine, CA)2019-12-28 15:14:00 Test Item Value Reference Range Interpretation Comments NA (test code = 137 mmol/L 135-145 1297375639) K (test code = 3.9 mmol/L 3.5-5 6003493190) CL (test code = 105 mmol/L 98-108 2759121150) CO2 TOTAL (test code = 26 mmol/L 23-31 4209193240) AGAP (test code = 2-16 1893960232) BUN (test code = 8 mg/dL 7-23 2918387988) GLUCOSE (test code = 99 mg/dL 70-110 2586471578) CREATININE (test code 0.65 mg/dL 0.5-1.04 = 7165775735) CALCIUM (test code = 8.6 mg/dL 8.6-10.6 2549796682) eGFR Calculation mL/min/1.73m2 (Non-) (test code = 8535752247) eGFR Calculation mL/min/1.73m2 () (test code = 3700461824) NNEKA (test code = NNEKA) Association of Glomerular Filtration Rate (GFR) and Staging of Kidney Disease* + -+ + ---+| GFR (mL/min/1.73 m2) ?| With Kidney Damage ?| ?Without Kidney Damage+ -------+ ------+ ---------+| ?>90 ?| ?Stage one ?| ? Normal ?+ --+ -+ ----+| ?60-89 ?| ?Stage two ?| ? Decreased GFR ? + -+ + ---+| ?30-59 ?| ?Stage three ?| ? Stage three ? + -+ + ---+| ?15-29 ?| ?Stage four ? | ? Stage four ?+ --+ -+ ----+| ?<15 (or dialysis) ? ?| ?Stage five ? | ? Stage five ?+ --+ -+ ----+ *Each stage assumes the associated GFR level has been in effect for at least three months. ?Stages 1 to 5, with or without kidney disease, indicate chronic kidney disease. Notes: Determination of stages one and two (with eGFR >59mL/min/1.73 m2) requires estimation of kidney damage for at least three months as defined by structural or functional abnormalities of the kidney, manifested by either:Pathological abnormalities or Markers of kidney damage (including abnormalities in the composition of the blood or urine or abnormalities in imaging tests). [facility]ID [facility])2019-12-28 15:08:00 Test Item Value Reference Range Interpretation Comments SARS-CoV-2 Rapid ID NOW Not Detected Not Detected (test code = 72903-0) NNEKA (test code = NNEKA) ID NOW COVID-19 Assay is an isothermal nucleic acid amplification test intended for the qualitative detection of nucleic acid from SARS-CoV-2 viral RNA in nasopharyngeal (QUANTITATIVE CONSULTANT) specimens. It is used under Emergency Use Authorization (EUA) by FDA. The limit of detection (LOD) of the assay is 125 Genome Equivalents/mL. A positive result is indicative of the presence of SARS-CoV-2 RNA. ?Clinical correlation with patient history and other diagnostic information is necessary to determine patient infection status. A negative (Not Detected) result does not preclude SARS-CoV-2 infection. In patients with clinical symptoms and other tests that are consistent with SARS-CoV-2 infection, negative results should be treated as presumptive negative and a new specimen should be tested with alternative PCR molecular test. Invalid: Please collect a new specimen for repeat patient testing if clinically indicated. Lab Interpretation Normal (test code = 09905-2) [facility] WITH [id number] 15:02:00 Test Item Value Reference Range Interpretation Comments WBC (test code = See_Comment [Automated 6690-2) message] The sy stem which generated this result transmitted reference range : 4.30 - 11.10 10*3/?L. The reference range was not used to interpret this result as normal/abnormal . RBC (test code = See_Comment L [Automated 789-8) message] The sy stem which generated this result transmitted reference range : 3.93 - 5.25 10*6/?L. The reference range was not used to interpret this result as normal/abnormal . HGB (test code = 9.2 g/dL 11.6-15 L 718-7) HCT (test code = 29.8 % 35.7-45.2 L 4544-3) MCV (test code = 92.5 fL 80.6-95.5 787-2) MCH (test code = 28.6 pg 25.9-32.8 785-6) MCHC (test code = 30.9 g/dL 31.6-35.1 L 786-4) RDW-SD (test code = 47.4 fL 39-49.9 87524-2) RDW-CV (test code = 14.0 % 12-15.5 788-0) PLT (test code = See_Comment [Automated 777-3) message] The sy stem which generated this result transmitted reference range : 166 - 358 10*3/ ?L. The reference r leigh was not used to interpret this result as normal/abnormal . MPV (test code = 9.4 fL 9.5-12.9 L 80558-9) NRBC/100 WBC (test See_Comment [Automat ed code = 4172969436) message] The system which generated this result transmitted reference range : 0.0 - 10.0 /100 WBCs. The refer ence range was not u sed to interpret th is result as normal/abnormal . NRBC x10^3 (test code <0.01 See_Comment [Auto mated = 3035385178) message] The s ystem which generated this result transmitted reference range : 10*3/?L. The reference range was not used to interpret this result as normal/abnormal . GRAN MAT (NEUT) % 64.0 % (test code = 770-8) IMM GRAN % (test code 0.30 % = 5704884771) LYMPH % (test code = 21.7 % 736-9) MONO % (test code = 11.1 % 5905-5) EOS % (test code = 2.2 % 713-8) BASO % (test code = 0.7 % 706-2) GRAN MAT x10^3(ANC) 3.86 10*3/uL 1.88-7.09 (test code = 2964596592) IMM GRAN x10^3 (test <0.03 0-0.06 code = 9148657324) LYMPH x10^3 (test code 1.31 10*3/uL 1.32-3.29 L = 731-0) MONO x10^3 (test code 0.67 10*3/uL 0.33-0.92 = 742-7) EOS x10^3 (test code = 0.13 10*3/uL 0.03-0.39 711-2) BASO x10^3 (test code 0.04 10*3/uL 0.01-0.07 = 704-7) Lab Interpretation Abnormal (test code = 44381-0) [facility] [id number] 01:52:59 1. ?Large anterior abdominal wall fluid collection with peripheralenhancement is suggestive of an abscess, likely postoperative. It encirclesthe umbilicus and focal air is also seen and this part (602: 81).Percutaneous drainage is recommended. 2. ?Hepatomegaly with hepatic steatosis Preliminary ReportDictated by Resident: Daniel Montano MD., have reviewed this study and agree with theabove report.CT ABDOMEN PELVIS W CONTRAST HISTORY: 54 years-old; Female; Abd pain, acute, generalized LLQ pain,distension, s/p abdominoplasty on 12/04/2019 in [place] COMPARISON: None TECHNIQUE AND FINDINGS: Contiguous axial imaging from the level of the lungbases through the pubic symphysis was performed after the uncomplicatedadministration of 120 ?cc of intravenous Omnipaque contrast. Coronal andsagittal reconstructions were obtained. ?Auto mA and/or iterativereconstruction were used to reduceradiation dose. FINDINGS: LOWER THORAX: The lung bases are clear. LIVER: Diffuse hepatic hypoattenuation. No focal hepatic lesions. Normalcontour. Hepatomegaly, measuring 19.7 cm, in the craniocaudal dimension. GALLBLADDER AND BILIARY TREE: No intra or extrahepatic biliary ductaldilation. SPLEEN: Splenomegaly, measuring 12.3 cm, in the craniocaudal dimension. PANCREAS: No ductal dilation or masses. ADRENAL GLANDS: No adrenal lesions. KIDNEYS: No hydronephrosis, stones, or masses. Homogeneous and symmetricalenhancement. GI TRACT: No dilation or bowel wall thickening. Prior appendectomy PERITONEUM AND RETROPERITONEUM: No free air or fluid collection. LYMPH NODES: No intra-abdominal or pelvic lymph node enlargement. PELVIS/BLADDER: Bladder is fully distended with no wall thickening. VESSELS: Unremarkable. BONES AND SOFT TISSUES: No suspicious lytic or sclerotic bony lesions.Subcutaneous collection in the anterior abdominal wall with with peripheralenhancement measuring 26.0 x 6.3 x 18.5 with internal density of simplefluid. There is a focus of air superiorly in the soft tissue (3:55). Thecollection extends from the umbilicus inferiorly to just above the pubicsymphysis. There is prominent fat stranding overlying the collection. Asmall fat-containing umbilical hernia is also noted. [facility], Radiant Results Inft User - 12/27/2019 8:54 PM CDTCT ABDOMEN PELVIS W CONTRASTHISTORY: 54 years-old; Female; Abd pain, acute, generalized LLQ pain,distension, s/p abdominoplasty on 12/04/2019 in [place] COMPARISON: NoneTECHNIQUE AND FINDINGS: Contiguous axial imaging from the level of the lungbases through the pubic symphysis was performed after the uncomplicatedadministration of 120 cc of intravenous Omnipaque contrast. Coronal andsagittal reconstructions were obtained. Auto mA and/or iterativereconstructionwere used to reduce radiation dose.FINDINGS:LOWER THORAX: The lung bases are clear. LIVER: Diffuse hepatic hypoattenuation. No focal hepatic lesions. Normalcontour. Hepatomegaly, measuring 19.7 cm, in the craniocaudal dimension.GALLBLADDER AND BILIARY TREE: No intra or extrahepatic biliary ductaldilation. SPLEEN: Splenomegaly, measuring 12.3 cm, in the craniocaudal dimension.PANCREAS: No ductal dilation or masses.ADRENAL GLANDS: No adrenal lesions.KIDNEYS: No hydronephrosis, stones, or masses. Homogeneous and symmetricalenhancement.GI TRACT: No dilation or bowel wall thickening. Prior appendectomyPERITONEUM AND RETROPERITONEUM: No free air or fluid collection.LYMPH NODES: No intra-abdominal or pelvic lymph node enlargement.PELVIS/BLADDER: Bladder is fully distended with no wall thickening.VESSELS: Unremarkable.BONES AND SOFT TISSUES: No suspicious lytic or sclerotic bony lesions.Subcutaneous collection in the anterior abdominal wall with with peripheralenhancement measuring 26.0 x 6.3 x 18.5 with internal density of simplefluid. There is a focus of air superiorly in the soft tissue (3:55). Thecollection extends from the umbilicus inferiorly to just above the pubicsymphysis. There is prominentfat stranding overlying the collection. Asmall fat-containing umbilical hernia is also noted.IMPRESSION1. Large anterior abdominal wall fluid collection with peripheralenhancement is suggestive of an abscess, likely postoperative. It encirclesthe umbilicus and focal air is also seen and this part (602:81).Percutaneous drainage is recommended.2. Hepatomegaly with hepatic steatosisPreliminary Report Dictated by Resident: Daniel Fuentes MD., have reviewed this study and agree with theabove report. [facility]2020-[facility] 00:14:00 Test Item Value Reference Range Interpretation Comments APPEARANCE (test code = Clear Clear 6246456630) COLOR (test code = Yellow Yellow 5927639951) PH (test code = 4.8-8.0 2404123262) SP GRAVITY (test code = 1.003-1.030 3472000514) GLU U QUAL (test code = Normal Normal 9772836476) BLOOD (test code = Negative Negative 3800204317) KETONES (test code = Negative Negative 1345389990) PROTEIN (test code = Negative Negative 2887-8) UROBILIN (test code = Normal Normal 9307689623) BILIRUBIN (test code = Negative Negative 4527966251) NITRITE (test code = Negative Negative 8498241030) LEUK KELSIE (test code = Negative Negative 8725246345) RBC/HPF (test code = See_Comment H [Autom ated message] 0470669264) The system [employer] generated this result transmitted ref erence range: 0 - 3 HP F. The reference range was not used to int erpret this result as normal/abnormal . WBC/HPF (test code = See_Comment [Autom ated message] 7978764452) The system [employer] generated this result transmitted ref erence range: 0 - 5 HP F. The reference range was not used to int erpret this result as normal/abnormal . BACTERIA (test code = Negative Negative 1961987669) SQ EPITH (test code = See_Comment H [Auto mated message] 3175609845) The system [employer] generated this result transmitted ref erence range: <=2 HPF. The reference range was not used to int erpret this result as normal/abnormal . Lab Interpretation (test Abnormal code = 00582-1) [facility]. METABOLIC PANEL ([id number])2019-12-28 00:07:00 Test Item Value Reference Range Interpretation Comments NA (test code = 137 mmol/L 135-145 9814245559) K (test code = 3.9 mmol/L 3.5-5 4432868506) CL (test code = 103 mmol/L 98-108 4416893116) CO2 TOTAL (test code = 26 mmol/L 23-31 2938779903) AGAP (test code = 2-16 2648864954) BUN (test code = 11 mg/dL 7-23 0072766437) GLUCOSE (test code = 100 mg/dL 70-110 5554516699) CREATININE (test code 0.74 mg/dL 0.5-1.04 = 2367222769) TOTAL BILI (test code 0.6 mg/dL 0.1-1.1 = 7016324524) CALCIUM (test code = 9.0 mg/dL 8.6-10.6 5431468845) T PROTEIN (test code = 7.6 g/dL 6.3-8.2 5661496833) ALBUMIN (test code = 3.9 g/dL 3.5-5 6848984795) ALK PHOS (test code = 60 U/L 34-122 8769526364) ALTv (test code = 14 U/L 5-35 1742-6) AST(SGOT) (test code = 28 U/L 13-40 3049709521) eGFR Calculation mL/min/1.73m2 (Non-) (test code = 1538705805) eGFR Calculation mL/min/1.73m2 () (test code = 2570612095) NNEKA (test code = NNEKA) Association of Glomerular Filtration Rate (GFR) and Staging of Kidney Disease* + -+ + ---+| GFR (mL/min/1.73 m2) ?| With Kidney Damage ?| ?Without Kidney Damage+ -------+ ------+ ---------+| ?>90 ?| ?Stage one ?| ? Normal ?+ --+ -+ ----+| ?60-89 ?| ?Stage two ?| ? Decreased GFR ? + -+ + ---+| ?30-59 ?| ?Stage three ?| ? Stage three ? + -+ + ---+| ?15-29 ?| ?Stage four ? | ? Stage four ?+ --+ -+ ----+| ?<15 (or dialysis) ? ?| ?Stage five ? | ? Stage five ?+ --+ -+ ----+ *Each stage assumes the associated GFR level has been in effect for at least three months. ?Stages 1 to 5, with or without kidney disease, indicate chronic kidney disease. Notes: Determination of stages one and two (with eGFR >59mL/min/1.73 m2) requires estimation of kidney damage for at least three months as defined by structural or functional abnormalities of the kidney, manifested by either:Pathological abnormalities or Markers of kidney damage (including abnormalities in the composition of the blood or urine or abnormalities in imaging tests). [facility] Test Item Value Reference Range Interpretation Comments LIPASE (test code = 2523245857) 73 U/L 0-220 Lab Interpretation (test code = Normal 01078-6) [facility] WITH [id number] 00:01:00 Test Item Value Reference Range Interpretation Comments WBC (test code = See_Comment [Automated 1090-2) message] The sy stem which generated this result transmitted reference range : 4.30 - 11.10 10*3/?L. The reference range was not used to interpret this result as normal/abnormal . RBC (test code = See_Comment L [Automated 789-8) message] The sy stem which generated this result transmitted reference range : 3.93 - 5.25 10*6/?L. The reference range was not used to interpret this result as normal/abnormal . HGB (test code = 9.7 g/dL 11.6-15 L 718-7) HCT (test code = 31.9 % 35.7-45.2 L 4544-3) MCV (test code = 92.7 fL 80.6-95.5 787-2) MCH (test code = 28.2 pg 25.9-32.8 785-6) MCHC (test code = 30.4 g/dL 31.6-35.1 L 786-4) RDW-SD (test code = 47.4 fL 39-49.9 39779-9) RDW-CV (test code = 14.0 % 12-15.5 788-0) PLT (test code = See_Comment H [Automated 777-3) message] The sy stem which generated this result transmitted reference range : 166 - 358 10*3/ ?L. The reference r leigh was not used to interpret this result as normal/abnormal . MPV (test code = 9.4 fL 9.5-12.9 L 39125-7) NRBC/100 WBC (test See_Comment [Automat ed code = 7179333744) message] The system which generated this result transmitted reference range : 0.0 - 10.0 /100 WBCs. The refer ence range was not u sed to interpret th is result as normal/abnormal . NRBC x10^3 (test code <0.01 See_Comment [Auto mated = 9137494112) message] The s ystem which generated this result transmitted reference range : 10*3/?L. The reference range was not used to interpret this result as normal/abnormal . GRAN MAT (NEUT) % 67.0 % (test code = 770-8) IMM GRAN % (test code 0.40 % = 1186101259) LYMPH % (test code = 20.8 % 736-9) MONO % (test code = 9.0 % 5905-5) EOS % (test code = 2.0 % 713-8) BASO % (test code = 0.8 % 706-2) GRAN MAT x10^3(ANC) 5.14 10*3/uL 1.88-7.09 (test code = 7988435707) IMM GRAN x10^3 (test 0.03 10*3/uL 0-0.06 code = 4999914290) LYMPH x10^3 (test code 1.59 10*3/uL 1.32-3.29 = 731-0) MONO x10^3 (test code 0.69 10*3/uL 0.33-0.92 = 742-7) EOS x10^3 (test code = 0.15 10*3/uL 0.03-0.39 711-2) BASO x10^3 (test code 0.06 10*3/uL 0.01-0.07 = 704-7) Lab Interpretation Abnormal (test code = 68267-6) [facility] CenterLactic Acid Whole [id number] 23:56:00 Test Item Value Reference Range Interpretation Comments LACTIC ACID (test code = 1.37 mmol/L 0.5-2.2 3476077461) Lab Interpretation (test code = Normal 75139-6) [facility]
[2023-05-22 17:37] LABS: Specific Gravity > 1.030 (1.005-1.030); Urine Bacteria <20 /HPF (<20); Urine Bilirubin NEGATIVE (Negative); Urine Blood Negative (Negative); Urine Clarity Extremely Turbid (Clear); Urine Color Yellow (Yellow); Urine Crystals Unidentified Few /HPF (None Seen); Urine Glucose NEGATIVE (Negative); Urine Mucus 1+ /HPF (None Seen); Urine Protein 1+ (Negative); Urine Urobilinogen 1+ (Normal); Urine pH 5.5 (5.0-7.0)
--- NOTE | 2023-05-22 17:46 | ER ---
Nurse's Notes [facility] Name: Mary Quan Age: 57 yrs Sex: Female : 1965 Arrival Date: 05/22/2023 Time: 16:30 Bed IW1 Private MD: Diagnosis: UTI/ Urinary tract infection, site not specified Presentation: 05/22 16:40 Chief complaint: Patient states: vaginal pressure, frequent urination, pt states "I am aa5 just very uncomfortable and my urine smells very bad". Coronavirus screen: At this time, the client does not indicate any symptoms associated with coronavirus-19. Ebola Screen: Patient denies travel to an Ebola-affected area in the 21 days before illness onset. Initial Sepsis Screen: Does the patient meet any 2 criteria? No. Patient's initial sepsis screen is negative. Does the patient have a suspected source of infection? Yes: Dysuria/Frequency/Urgency/UTI. Risk Assessment: Do you want to hurt yourself or someone else? Patient reports no desire to harm self or others. Onset of symptoms was April 2023. 16:40 Acuity: MELL 4 aa5 16:40 Method Of Arrival: Ambulatory aa5 Historical: - Allergies: 16:41 No Known Allergies; aa5 - Home Meds: 16:41 None [Active]; aa5 - PMHx: 16:41 None; aa5 - PSHx: 16:41 Appendectomy; Cholecystectomy; Tummy tuck; gastric sleeve; aa5 - Immunization history:: Adult Immunizations unknown. - Social history:: Smoking status: Reported history of juuling and/or vaping. Assessment: 17:49 Reassessment: no answer when called. iw 18:12 Reassessment: pt not in lobby. iw Vital Signs: 16:40 BP 123 / 79; Pulse 77; Resp 16 S; Temp 99.1(TE); Pulse Ox 98% on R/A; Weight 82.55 kg aa5 (R); Height 5 ft. 6 in. (R); 16:40 Body Mass Index 29.37 (82.55 kg, 167.64 cm) aa5 ED Course: 16:34 Patient arrived in ED. kj1 16:36 Zuleima Nagel FNP-C is PHCP. kb 16:36 Freddy Lindsay MD is Attending Physician. kb 16:40 Arm band placed on. aa5 16:41 Triage completed. aa5 17:59 Trinity Vaughn, RN is Primary Nurse. iw Administered Medications: No medications were administered Outcome: 17:45 Discharge ordered by . kb 18:12 Patient left the ED. iw Signatures: Zuleima Nagel, PHOTOGRAPHER HELPER-C PHOTOGRAPHER HELPER-CkTrinity Smith, RN RN Marley Spence RN RN aa5 Marycruz Nagel kj1
--- NOTE | 2023-05-22 17:46 | EDPHYS ---
[facility] Name: Mary Quan Age: 57 yrs Sex: Female : 1965 Arrival Date: 05/22/2023 Time: 16:30 Bed IW1 Private MD: ED Physician Freddy Lindsay HPI: 05/22 16:52 This 57 yrs old Female presents to ER via Ambulatory with complaints of kb Vaginal Pain - POSSIBLE UTI. 16:52 Patient is a 57-year-old female with no medical history who presents for urinary kb frequency, suprapubic pain /pressure, foul-smelling urine. Denies fever. Historical: - Allergies: 16:41 No Known Allergies; aa5 - Home Meds: 16:41 None [Active]; aa5 - PMHx: 16:41 None; aa5 - PSHx: 16:41 Appendectomy; Cholecystectomy; Tummy tuck; gastric sleeve; aa5 - Immunization history:: Adult Immunizations unknown. - Social history:: Smoking status: Reported history of juuling and/or vaping. ROS: 16:53 Constitutional: Negative for fever, chills, and weight loss, kb 16:53 : Positive for urinary symptoms, urinary frequency, small amounts, foul smelling urine, 16:53 All other systems are negative, Exam: 16:53 Constitutional: This is a well developed, well nourished patient who is awake, alert, kb and in no acute distress. Head/Face: Normocephalic, atraumatic. ENT: Moist Mucous membranes Cardiovascular: Regular rate Respiratory: Respirations even and unlabored. No increased work of breathing. Talking in full sentences Skin: Warm, dry with normal turgor. Normal color. MS/ Extremity: Pulses equal, no cyanosis. Neurovascular intact. Full, normal range of motion. Neuro: Awake and alert, GCS 15, oriented to person, place, time, and situation. Moves all extremities. Normal gait. 16:53 Abdomen/GI: Inspection: abdomen appears normal, Bowel sounds: normal, Palpation: soft, in all quadrants, mild abdominal tenderness, in the suprapubic area, Vital Signs: 16:40 BP 123 / 79; Pulse 77; Resp 16 S; Temp 99.1(TE); Pulse Ox 98% on R/A; Weight 82.55 kg aa5 (R); Height 5 ft. 6 in. (R); 16:40 Body Mass Index 29.37 (82.55 kg, 167.64 cm) aa5 MDM: 16:37 Patient medically screened. kb 16:53 Differential diagnosis: nonspecific abdominal pain, urinary tract infection, vaginosis. kb Data reviewed: vital signs, nurses notes. 17:44 Counseling: I had a detailed discussion with the patient and/or guardian regarding the kb historical points, exam findings, and any diagnostic results supporting the discharge/admit diagnosis, lab results, the need for outpatient follow up, a family practitioner, to return to the emergency department if symptoms worsen or persist or if there are any questions or concerns that arise at home. 05/22 16:44 Order name: Urinalysis w/ reflexes; Complete Time: 17:44 kb 05/22 17:41 Order name: Urine Culture EDMS Administered Medications: No medications were administered Disposition Summary: 05/22/23 17:45 Discharge Ordered Notes: Location: Home kb Condition: Stable kb Diagnosis - UTI/ Urinary tract infection, site not specified kb Followup: kb - With: Emergency Department - When: As needed - Reason: Worsening of condition Followup: kb - With: Private Physician - When: 2 - 3 days - Reason: Recheck today's complaints, Continuance of care, Re-evaluation by your physician Discharge Instructions: - Discharge Summary Sheet kb - Urinary Tract Infection, Adult, [id number] kb Forms: - Medication Reconciliation Form kb - Thank You Letter kb - Antibiotic Education kb - Prescription Opioid Use kb - Patient Portal Instructions kb - Leadership Thank You Letter kb Prescriptions: - Augmentin 875-125 mg Oral Tablet - take 1 tablet ORAL route every 12 hours for 10 days; 20 tablet; Refills: 0, kb Product Selection Permitted Signatures: Dispatcher [employer] EDZuleima Aguillon, CHINTAN YOUNG-Marley Post, RN RN aa5
[2023-05-22 18:46] VITALS: BP 123/79; TEMP 99.1; O2SAT 98
== END 2023-05-22 18:12 | disposition home or self-care (01) ==
LOC: ER 16:30
DX: N39.0 Urinary tract infection, site not specified (principal)
CPT/HCPCS: 81001; 87086; 87088; 99281

== ENCOUNTER → 2023-09-19 | Emergency (ER) | payer OTHER ==
[~2023-09-19] MED LIST: LORazepam 2 MG/ML VIAL ONE; NA CHLORIDE 0.9% 1,000 ML ONE
--- NOTE | 2023-09-19 21:11 | RAD REPORT ---
EXAM DESCRIPTION: Yaya Single View09/19/2023 9:01 pm CLINICAL HISTORY: Syncope COMPARISON: none FINDINGS: The lungs appear clear of acute infiltrate. The heart is normal size IMPRESSION: No acute abnormalities displayed
[2023-09-19 21:30] LABS: Absolute Eosinophils 0.1 K/uL (0-0.5); Absolute Lymphocytes (CBC) 2.6 K/uL (0.7-4.9); Absolute Monocytes 0.7 K/uL (0.1-1.3); Absolute Neutrophil 9.1 K/uL (1.8-8.0); Basophils % 0.3 % (0-1.3); Eosinophils % 0.5 % (0-4.4); Hematocrit 51.4 % (36.0-45.0); Hemoglobin 16.7 g/dL (12.0-15.0); Lymphocytes % 20.8 % (15.3-44.8); MCH 29.8 pg (27.0-35.0); MCHC 32.6 g/dL (32.0-36.0); MCV 91.5 fL (80-100); MPV 8.9 fL (7.6-11.3); Monocytes % 5.4 % (3.3-12.3); Platelets 309 thou/uL (152-406); RBC Red Blood Cell Count 5.61 M/uL (3.86-4.86); Red Cell Distribution Width 14.5 % (12.1-15.2)
[2023-09-19 22:00] LABS: Albumin 3.1 g/dL (3.4-5.0); Albumin/Globulin Ratio 0.9 (1.1-1.8); Anion Gap 13.7 mEq/L (5.0-15.0); Bilirubin Direct 0.1 mg/dL (0-0.2); Bilirubin Indirect, Calculated 0.5 mg/dL (0.2-0.8); Bilirubin Total 0.6 mg/dL (0.2-1.0); Globulin 3.3 g/dL (2.3-3.5); Magnesium 1.9 mg/dL (1.6-2.4); Potassium 3.7 mEq/L (3.5-5.1); Protein, Total 6.4 g/dL (6.4-8.2); Troponin High Sensitivity 4.1 pg/mL (<58.9)
--- NOTE | 2023-09-19 22:15 | RAD REPORT ---
EXAM DESCRIPTION: CT - Head Brain Wo Cont - 09/19/2023 9:29 pm CLINICAL HISTORY: Syncope COMPARISON: none TECHNIQUE: Computed axial tomography of the head was obtained. IV contrast was not requested. All CT scans are performed using dose optimization technique as appropriate and may include automated exposure control or mA/KV adjustment according to patient size. FINDINGS: An intracranial bleed is not seen The ventricles are normal in caliber No significant hypodense areas within the brain visualized No extra-axial fluid collection is noted. Fluid within the sinuses/ mastoids is not seen IMPRESSION: No acute intracranial abnormality is seen If patient's symptoms persist MRI of the brain would be recommended
--- NOTE | 2023-09-19 23:09 | ER ---
[facility] Name: Mary Quan Age: 58 yrs Sex: Female : 1965 Arrival Date: 09/19/2023 Time: 20:38 Bed 2 Private MD: Diagnosis: Acute syncopal episode, anxiety attack with hyperventilation Presentation: 09/18 20:53 Chief complaint: Chief complaint: Patient states: walking to care from [facility] and vc1 passed out, came to and hands were tingling. 20:58 Coronavirus screen: Vaccine status: Patient reports receiving the 2nd dose of the covid vc1 vaccine. At this time, the client does not indicate any symptoms associated with coronavirus-19. Ebola Screen: Patient negative for fever greater than or equal to 101.5 degrees Fahrenheit, and additional compatible Ebola Virus Disease symptoms Patient denies exposure to infectious person. Patient denies travel to an Ebola-affected area in the 21 days before illness onset. No symptoms or risks identified at this time. Initial Sepsis Screen: Does the patient meet any 2 criteria? No. Patient's initial sepsis screen is negative. Does the patient have a suspected source of infection? No. Patient's initial sepsis screen is negative. Risk Assessment: Do you want to hurt yourself or someone else? Patient reports no desire to harm self or others. Onset of symptoms was September 19, 2023 at 20:30. 20:58 Method Of Arrival: Ambulatory vc1 20:58 Acuity: MELL 3 vc1 Triage Assessment: 21:00 General: Appears in no apparent distress. uncomfortable, Behavior is cooperative, vc1 anxious, crying. Pain: Denies pain. EENT: No deficits noted. No signs and/or symptoms were reported regarding the EENT system. Neuro: Level of Consciousness is awake, alert, obeys commands, Oriented to person, place, time, situation, Appropriate for age Gait is steady, Speech is normal, Facial symmetry appears normal, Reports numbness and tingling to bilateral hands that has resolved. Cardiovascular: No deficits noted. Reports syncope, Denies chest pain, lightheadedness, palpitations, shortness of breath. Respiratory: Airway is patent Respiratory effort is even, unlabored, Respiratory pattern is regular, symmetrical. GI: No deficits noted. No signs and/or symptoms were reported involving the gastrointestinal system. : No deficits noted. No signs and/or symptoms were reported regarding the genitourinary system. Derm: No deficits noted. No signs and/or symptoms reported regarding the dermatologic system. Musculoskeletal: No deficits noted. No signs and/or symptoms reported regarding the musculoskeletal system. Historical: - Allergies: 20:59 No Known Allergies; vc1 - Home Meds: 20:59 None [Active]; vc1 - PMHx: 20:59 None; vc1 - PSHx: 20:59 Appendectomy; Cholecystectomy; gastric sleeve; Tummy tuck; vc1 - Immunization history:: Client reports receiving the 2nd dose of the Covid vaccine, Flu vaccine is not up to date. Patient has never been vaccinated. - Social history:: Smoking status: Reported history of juuling and/or vaping. - Family history:: not pertinent. Screenin:00 Abuse screen: Denies threats or abuse. Nutritional screening: No deficits noted. vc1 Tuberculosis screening: No symptoms or risk factors identified. 22:27 [facility] ED Fall Risk Assessment (Adult) History of falling in the last 3 months, tm6 including since admission Yes- single mechanical fall (1 pt) Confusion or Disorientation No (0 pts) Intoxicated or Sedated No (0 pts) Impaired Gait No (0 pts) Mobility Assist Device Used No (0 pt) Altered Elimination No (0 pt) Score/Fall Risk Level 0 - 2 = Low Risk Oriented to surroundings, Maintained a safe environment. Assessment: 22:27 General: Appears in no apparent distress. Behavior is calm, cooperative. Pain: Denies tm6 pain. Neuro: Level of Consciousness is awake, alert, obeys commands, Oriented to person, place, time, situation. Cardiovascular: Rhythm is sinus rhythm. Respiratory: Airway is patent Respiratory effort is even, unlabored, Respiratory pattern is regular, symmetrical. GI: No signs and/or symptoms were reported involving the gastrointestinal system. Abdomen is flat, non-distended. : No signs and/or symptoms were reported regarding the genitourinary system. EENT: No signs and/or symptoms were reported regarding the EENT system. Derm: No signs and/or symptoms reported regarding the dermatologic system. Musculoskeletal: No signs and/or symptoms reported regarding the musculoskeletal system. 23:23 Reassessment: Patient appears in no apparent distress at this time. Patient and/or jb4 family updated on plan of care and expected duration. Pain level reassessed. Patient is alert, oriented x 3, equal unlabored respirations, skin warm/dry/pink. Vital Signs: 20:58 BP 97 / 82; Pulse 120; Resp 20; Temp 97.5; Pulse Ox 100% ; Weight 82.55 kg; Height 5 vc1 ft. 6 in. ; Pain 0/10; 22:26 BP 98 / 77; Pulse 84; Resp 22; Pulse Ox 98% on R/A; Pain 0/10; tm6 23:00 BP 101 / 70; Pulse 83; Resp 18; Pulse Ox 96% on R/A; jb4 20:58 Body Mass Index 29.38 (82.55 kg, 167.64 cm) vc1 20:58 Pain Scale: Adult vc1 22:26 Pain Scale: Adult tm6 ED Course: 20:39 Patient arrived in ED. jj6 20:40 Vinay Hogue MD is Attending Physician. sp4 20:59 Triage completed. vc1 21:00 Arm band placed on left wrist. vc1 21:00 EKG completed in triage. Results shown to MD. vc1 21:02 Patient placed in an exam room, on a stretcher. vc1 21:03 XRAY Chest (1 view) In Process Unspecified. EDMS 21:08 Warm blanket given. oe 21:20 Inserted saline lock: 20 gauge in left antecubital area, using aseptic technique. Blood oe collected. 21:21 Troponin HS Sent. oe 21:21 PT-INR Sent. oe 21:21 NT PRO-BNP Sent. oe 21:21 Magnesium Sent. oe 21:21 LFT's Sent. oe 21:21 CBC with Diff Sent. oe 21:21 Basic Metabolic Panel Sent. oe 21:29 Client placed on continuous cardiac and pulse oximetry monitoring. NIBP monitoring oe applied. cardiac monitor on. 21:31 CT Head Brain wo Cont In Process Unspecified. EDMS 22:00 Inserted saline lock: 20 gauge in right antecubital area, using aseptic technique. jb4 22:27 Patient has correct armband on for positive identification. Placed in gown. Bed in low tm6 position. Call light in reach. Side rails up X2. Provided Education on: plan of care. Pulse ox on. NIBP on. 22:31 Hero Seth, RN is Primary Nurse. jb4 23:00 No provider procedures requiring assistance completed. IV discontinued, intact, jb4 bleeding controlled, No redness/swelling at site. Pressure dressing applied. 23:09 Nicholas Browne MD is Referral Physician. sp4 Administered Medications: 21:34 Drug: NS 0.9% IV 1000 ml IV at 1 bolus Per protocol; 1000 mL bolus Route: IV; Rate: 1 jb4 bolus; Site: left antecubital; 21:34 Drug: Ativan IVP 1 mg IVP once Route: IVP; Site: left antecubital; jb4 Medication: 22:27 VIS not applicable for this client. tm6 Outcome: 23:09 Discharge ordered by . sp4 23:24 Discharged to home ambulatory, with family, jb4 23:24 Condition: stable 23:24 Discharge instructions given to patient, Instructed on discharge instructions, follow up and referral plans. Demonstrated understanding of instructions, follow-up care, Prescriptions given X 1, 23:24 Patient left the ED. jb4 Signatures: Dispatcher [employer] EDMS Hero Seth, RN RN jb4 Maverick Juarez Jennifer jj6 Tania May RN RN vc1 Vinay Hogue MD MD sp4 Jim Guadalupe RN RN tm6 Corrections: (The following items were deleted from the chart) 20:59 20:53 Chief complaint: vc1 vc1
--- NOTE | 2023-09-19 23:09 | EDPHYS ---
Physician Documentation [facility] Name: Mary Quan Age: 58 yrs Sex: Female : 1965 Arrival Date: 09/19/2023 Time: 20:38 Bed 2 Private MD: ED Physician Vinay Hogue HPI: 09/18 20:41 This 58 yrs old Female presents to ER via Unassigned with complaints of sp4 Numbness Of Hand, Syncope. 21:02 58-year-old female presents with acute syncopal episode just [facility] Patient very anxious on initial presentation and tachycardic. . Historical: - Allergies: 20:59 No Known Allergies; vc1 - Home Meds: 20:59 None [Active]; vc1 - PMHx: 20:59 None; vc1 - PSHx: 20:59 Appendectomy; Cholecystectomy; gastric sleeve; Tummy tuck; vc1 - Immunization history:: Client reports receiving the 2nd dose of the Covid vaccine, Flu vaccine is not up to date. Patient has never been vaccinated. - Social history:: Smoking status: Reported history of juuling and/or vaping. - Family history:: not pertinent. ROS: 21:02 Constitutional: Negative for fever, chills, and weight loss, positive for syncopal sp4 episode and positive for numbness in the hands. 21:02 All other systems are negative, Exam: 21:02 Constitutional: This is a well developed, well nourished patient who is awake, alert, sp4 anxious appearing female, rapid breathing and tachycardia Head/Face: Normocephalic, atraumatic. Eyes: Pupils equal round and reactive to light, extra-ocular motions intact. Lids and lashes normal. Conjunctiva and sclera are not injected. Cornea within normal limits. Periorbital areas with no swelling, redness, or edema. ENT: Nares patent. No nasal discharge, no septal abnormalities noted. Tympanic membranes are normal and external auditory canals are clear. Oropharynx with no redness, swelling, or masses, exudates, or evidence of obstruction, uvula midline. Mucous membranes moist. Neck: Trachea midline, no thyromegaly or masses palpated, and no cervical lymphadenopathy. Supple, full range of motion without nuchal rigidity, or vertebral point tenderness. Chest/axilla: Normal chest wall appearance and motion. Nontender with no deformity. No lesions are appreciated. Cardiovascular: Positive regular tachycardia, no gallops, murmurs, or rubs. Normal PMI, no JVD. No pulse deficits. Respiratory: Lungs have equal breath sounds bilaterally, clear to auscultation and percussion. No rales, rhonchi or wheezes noted. Positive for dyspnea and tachypnea Abdomen/GI: Soft, with normal bowel sounds. No distension or tympany. No guarding or rebound. No evidence of tenderness throughout. Back: No spinal tenderness. No costovertebral tenderness. Skin: Warm, dry with normal turgor. Normal color with no rashes, no lesions, and no evidence of cellulitis. MS/ Extremity: Pulses equal, no cyanosis. Neurovascular intact. Full, normal range of motion. Neuro: Awake and alert, GCS 15, oriented to person, place, time, and situation. Cranial nerves II-XII grossly intact. Motor strength 5/5 in all extremities. Sensory grossly intact. Psych: Awake, alert, with orientation to person, place and time. Positive for acute anxiety and hyperventilation 21:02 ECG was reviewed by the Attending Physician. EKG at 20:40 sinus tachycardia at the rate of 120, 23:07 repeat EKG at the rate of 77, normal sinus rhythm with sinus arrhythmia at a rate of sp4 77, EKG time 22:00 Vital Signs: 20:58 BP 97 / 82; Pulse 120; Resp 20; Temp 97.5; Pulse Ox 100% ; Weight 82.55 kg; Height 5 vc1 ft. 6 in. ; Pain 0/10; 22:26 BP 98 / 77; Pulse 84; Resp 22; Pulse Ox 98% on R/A; Pain 0/10; tm6 23:00 BP 101 / 70; Pulse 83; Resp 18; Pulse Ox 96% on R/A; jb4 20:58 Body Mass Index 29.38 (82.55 kg, 167.64 cm) vc1 20:58 Pain Scale: Adult vc1 22:26 Pain Scale: Adult tm6 MDM: 20:44 Patient medically screened. sp4 22:51 ED course: EXAM DESCRIPTION: Yaya Rodriguez View09/19/2023 9:01 pm CLINICAL HISTORY: sp4 Syncope COMPARISON: none FINDINGS: The lungs appear clear of acute infiltrate. The heart is normal size IMPRESSION: No acute abnormalities displayed. 22:51 ED course: EXAM DESCRIPTION: CT - Head Brain Wo Cont - 09/19/2023 9:29 pm CLINICAL sp4 HISTORY: Syncope COMPARISON: none TECHNIQUE: Computed axial tomography of the head was obtained. IV contrast was not requested. All CT scans are performed using dose optimization technique as appropriate and may include automated exposure control or mA/KV adjustment according to patient size. FINDINGS: An intracranial bleed is not seen The ventricles are normal in caliber No significant hypodense areas within the brain visualized No extra-axial fluid collection is noted. Fluid within the sinuses/ mastoids is not seen IMPRESSION: No acute intracranial abnormality is seen If patient's symptoms persist MRI of the brain would be recommended. 23:07 Differential diagnosis: Syncope, panic attack, anxiety attack, hyperventilation. Data sp4 reviewed: vital signs, nurses notes, lab test result(s), EKG, radiologic studies, CT scan, plain films. Consideration of Admission/Observation Escalation of care including admission/observation considered. ED course: Patient has improved after IV lorazepam and some IV fluids. Repeat EKG at 22:00 reveals normal sinus rhythm with sinus arrhythmia at rate of 77 otherwise normal EKG. patient stable for discharge home with referral to Dr. Browne for outpatient workup including echocardiogram and carotid Doppler, with or without outpatient stress test. 09/18 20:41 Order name: Basic Metabolic Panel; Complete Time: 22:52 4 09/18 20:41 Order name: CBC with Diff; Complete Time: 22:52 4 09/18 20:41 Order name: LFT's; Complete Time: 22:52 sp4 09/18 20:41 Order name: Magnesium; Complete Time: 22:52 4 09/18 20:41 Order name: NT PRO-BNP; Complete Time: 22:52 4 09/18 20:41 Order name: PT-INR; Complete Time: 22:52 4 09/18 20:41 Order name: Troponin HS; Complete Time: 22:52 4 09/18 20:41 Order name: XRAY Chest (1 view); Complete Time: 22:52 4 09/18 20:54 Order name: CT Head Brain wo Cont; Complete Time: 22:52 sp4 09/18 20:41 Order name: EKG; Complete Time: 20:42 sp4 09/18 20:41 Order name: Cardiac monitoring; Complete Time: : sp4 09/18 20:41 Order name: EKG - Nurse/Tech; Complete Time: 21:02 sp4 09/18 20:41 Order name: IV Saline Lock; Complete Time: : sp4 09/18 20:41 Order name: Labs collected and sent; Complete Time: 21: sp4 09/18 20:41 Order name: O2 Per Protocol; Complete Time: 21: sp4 09/18 20:41 Order name: O2 Sat Monitoring; Complete Time: 21: sp4 EC: Rate is 120 beats/min. Rhythm is regular, Sinus tachycardia. QRS [place] is Normal. [place] sp4 interval is normal. QRS interval is normal. QT interval is normal. No Q waves. T waves are Normal. No ST changes noted. Clinical impression: No evidence of ischemia. Interpreted by me. Reviewed by me. Administered Medications: :34 Drug: NS 0.9% IV 1000 ml IV at 1 bolus Per protocol; 1000 mL bolus Route: IV; Rate: 1 jb4 bolus; Site: left antecubital; :34 Drug: Ativan IVP 1 mg IVP once Route: IVP; Site: left antecubital; jb4 Disposition Summary: 09/19/23 23:09 Discharge Ordered Problem: new sp4 Symptoms: have improved sp4 Condition: Stable sp4 Diagnosis - Acute syncopal episode, anxiety attack with hyperventilation sp4 Followup: sp4 - With: Nicholas Browne MD - When: 7 - 10 days - Reason: Recheck today's complaints Discharge Instructions: - Discharge Summary Sheet sp4 - Syncope, [id number] sp4 Forms: - Patient Portal Instructions sp4 Signatures: Dispatcher [employer] Hero Turpin RN RN jb4 Tania May RN RN vc1 Vinay Hogue MD MD sp4
[2023-09-19 23:39] VITALS: BP 101/70; TEMP 97.5; O2SAT 96
--- NOTE | 2023-09-20 14:00 | EKG ---
Test Date: 2023-09-19 Test Time: 20:40:53 Family Nurse Practitioner: EMELYN MEASUREMENT RESULTS: Intervals: Rate: 120 MT: 124 QRSD: 70 QT: 310 QTc: 438 [place]: P: 72 MT: 124 QRS: 53 T: 76 INTERPRETIVE STATEMENTS: Sinus tachycardia Otherwise normal ECG No previous ECG available for comparison Electronically Signed On 09-20-23 13:59:25 CDT by Nicholas Browne
== END ==
LOC: ER 20:38
DX: F41.0 Panic disorder [episodic paroxysmal anxiety] (principal); R06.4 Hyperventilation
CPT/HCPCS: 85025; 80048; 36415; 83735; 85610; 80076; 84484; 83880; 70450; 71045; J7030; 93005